=== PATIENT | male | born 1940 | race Caucasian/White ===

== ENCOUNTER 2024-03-13 20:18 | Inpatient (IN) | payer MEDICARE, OTHER, SELFPAY ==
[2024-03-13 11:53] VITALS: BP 160/82
[2024-03-13 12:12] LABS: % Basophils 0.3 % (0-2); % Immature Granulocytes 0.6 % (0-0.5); % Lymphocytes 5.8 % (20.5-51.1); % Monocytes 6.8 % (1.7-9.3); % Neutrophils 86.5 % (42.2-75.2); Absolute Basophils 0.1 10^3/uL (0-0.2); Absolute Immature Granulocytes 0.1 10^3/uL (0-0.05); Absolute Lymphocytes 1.4 10^3/uL (1.2-3.4); Absolute Monocytes 1.6 10^3/uL (0.1-0.6); Absolute Neutrophils 20.7 10^3/uL (1.4-6.5); Hematocrit 41.7 % (39.0-52.0); Mean Corp Hgb Conc. 33.6 g/dL (33.0-37.0); Mean Corpuscular Hgb 29.1 pg (27.0-31.0); Mean Corpuscular Volume 86.7 fL (80.0-94.0); Nucleated Red Blood Cells % 0 % (-); Platelet Count 168 10^3/uL (130-400); Red Blood Cell Count 4.81 10^6/uL (4.70-6.10); Red Cell Dist. Width 14.2 % (11.5-14.5)
[2024-03-13 12:30] LABS: ALT (SGPT) 19 U/L (0-50); AST (SGOT) 22 U/L (17-59); Albumin 3.9 g/dl (3.5-5.0); Alkaline Phosphatase 83 U/L (38-126); Blood Urea Nitrogen 22 mg/dl (9-20); Calcium 8.6 mg/dl (8.4-10.2); Carbon Dioxide 26 mmol/L (22-30); Chloride 99 mmol/L (98-107); Glucose 127 mg/dl (70-99); Potassium 3.6 mmol/L (3.5-5.1); Sodium 132 mmol/L (135-145); Total Bilirubin 1.4 mg/dl (0.2-1.3); eGFR > 60.00
[2024-03-13 13:00] LABS: Urine Albumin 1+ (Neg - Trace); Urine Bilirubin Negative (Negative); Urine Character Slightly Cloudy (Clear); Urine Color Yellow; Urine Glucose Negative (Negative); Urine Ketone 3+ (Negative); Urine Leukocyte 1+ (Negative); Urine Nitrite Positive (Negative); Urine Occult Blood 2+ (Negative); Urine Specific Gravity 1.025 (<1.030); Urine Urobilinogen Negative (Neg - 1+)
[2024-03-13 13:29] LABS: Urine Bacteria Many (Negative); Urine Red Blood Cell 0-2 /HPF (0-2); Urine White Cell 40-50 /HPF (0-5)
--- NOTE | 2024-03-13 15:34 | ED.GENMED ---
History of Present Illness
General
Chief Complaint: Urinary Symptoms
Source: patient
Exam Limitations: none
Time Seen by Provider: 03/13/24 15:26
Travel History
Have you had any contact with someone who has COVID-19?: No
Do you have any symptoms of coronavirus? Fever > 100 degrees, chills, cough, shortness of breath, sore throat, loss of taste or smell, muscle aches, or headache?: No
History of Present Illness
History of Present Illness:
83-year-old male started 2 days ago with UTI symptoms burning frequency. 104 temperature yesterday. No antipyretics today. Generally achy. Some bilateral back pain. No history of UTI.
Past History
Past History
ED Past Medical History: CAD, Hypercholesterolemia, NIDDM and Other (Diabetes, GI bleed, diverticulosis)
ED Past Surgical History: Other (Cardiac stents, cataracts)
Social History
Tobacco: Non-smoker
Alcohol: None
Drug: None
Personal:
Living: with family
Employment: Retired
Family History
Family History: Other (Noncontributory)
Review of Systems
Review of Systems
All Other Systems: Not applicable
Constitutional: Reports fever; Denies chills
Respiratory: Reports no symptoms
ABD/GI: Reports no symptoms
Phy Exam
Physical Exam
Physical Exam:
GENERAL: Alert and oriented in no apparent distress
EYE: Orbits normal.
NECK: Supple, no significant adenopathy.
ENT: Pharynx without erythema
CARDIAC: Regular rate and rhythm without any obvious murmurs.
LUNGS: Clear breath sounds,normal
ABDOMEN: Soft, without focal tenderness or distention. No CVA tenderness
NEUROLOGICAL: Alert and oriented , grossly non-focal
SKIN: Warm and dry, no rash or lesion, no discoloration, skin intact.
MUSCULOSKELETAL: No edema,no deformity.Good color
PSYCH: Normal and appropriate interaction.
Course
Orders/Labs/Results
Orders:
Orders
03/13/24 11:59
Complete Blood Count/With Diff Urgent
Comprehensive Metabolic Panel Urgent
Urinalysis Reflex To Culture Urgent
Date Specimen was Collected: 03/13/24
Time Specimen was Collected: 11:55
Urine Microscopic Reflex Cult Urgent
Urine Culture Urgent
ОЛЬГА Source: U
Specimen Description:
Obtained by: Random
Date Specimen was Collected: 03/13/24
Time Specimen was Collected: 11:55
03/13/24 Dinner
Cholesterol Lowering
Cholesterol Lowering: Sodium, 2 Gram
1800 niharika/15 CHO Diabetic
03/13/24 15:32
IV Insert/Care/Rem.- Treatment PRN
0.9% Sodium Chloride 1000 ml [Nss] 1,000 ml IV BOLUS
Cefepime HCl [Maxipime] 2,000 mg IV NOW STA
03/13/24 15:34
CT Abd/pel Without Iv Or Oral Urgent
Comment:
Reason For Exam: Bilateral back pain/UTI
03/13/24 15:53
Blood Culture Q30M
ОЛЬГА Source: Blood/Venous
Specimen Description:
03/13/24 16:02
Lactic Acid Q4H
Comment: CANCEL 2nd LACTIC ACID IF 1st LACTIC ACID IS LESS THAN 2
Blood Culture Q30M
ОЛЬГА Source: Blood/Venous
Specimen Description:
03/13/24 18:59
Admit/Transfer Patient As Directed
Co-Sign Provider:
Level of Care: Inpatient admission
Assign to:: Telemetry
Physician / Group: tawnya escobar
Diagnosis: sepsis 2/2 to uti/ cystitis
Reason for Telemetry: Arrhythmia
Date to Stop Telemetry: 03/16/24
Time to Stop Telemetry: 11:00
Reason for Hospitalization: sepsis 2/2 to uti/ cystitis
Expected length of stay greater than two midnights?: Yes
ELOS- Estimated Length of Stay in days: 4
I certify the patient meets the requirements for IP care: Yes
Code Status As Directed
Resuscitation Status: Full Code
03/13/24 20:47
0.9% Sodium Chloride 1000 ml [Nss] 1,000 ml IV 80 mls/hr
Acetaminophen [Tylenol] 650 mg PO Q4HPRN PRN
Bisacodyl [Dulcolax] 10 mg RECTAL [id number] PRN
Dextrose 50%-Water [Dextrose 50% Syringe] 12.5 grams IV [id number] PRN
Docusate W/Senna [Senokot-S] 1 tablet PO BIDPRN PRN
Glucagon [GlucaGen] 1 mg IM PRN PRN
Polyethylene Glycol Powder [Miralax] 17 grams PO DAILYPRN PRN
03/13/24 20:47
Activity As Directed
Activity Level: As Tolerated
Bedside Glucose Monitoring As Directed
Frequency: AC&HS
Additional Instructions:: Change to q6h if pt on TPN, tube feeding or not eating
Bladder Scan As Directed
Follow Bladder Retention/Intermittent Cath Algorithm?: Yes
PRN if no void in __ hours: 6
Frequency: Per Retention Algorithm
If Bladder Scan Result >: 400
then:: Straight cath
Intake/ Output As Directed
Frequency: Per unit guidelines
Nursing to Place Non Medication Order As Directed
Physician Order: Please call the CT in .. nurse Augusto [phone] patient's medication list as they are
closed and he does not know them
Straight Cath As Directed
Frequency: Per Retention Algorithm
Additional Instructions: straight cath as needed per acute urinary retention algorithm for 24 hrs
Additional Instructions: for bladder scan greater than 400 mL
Vital Signs As Directed
Frequency: Per unit guidelines
Ot Eval And Treat Routine
Pt Eval And Treat Routine
Activity Level: As Tolerated
DX Deep Vein Thrombosis Video Routine
03/13/24 22:00
CefTRIAXone [Rocephin] 1,000 mg IV Q24H
03/14/24 06:00
Complete Blood Count/With Diff IN AM
Comprehensive Metabolic Panel IN AM
Glycohemoglobin (HgbA1c) IN AM
03/14/24 07:30
Insulin Aspart Corrective Low [Novolog Flexpen-Low Resistance] See Protocol SC AC
03/14/24 08:00
Aspirin Low Dose EC [Aspir Low (Enteric Coated)] 81 mg PO DAILY
Cyanocobalamin [Vitamin B-12] 1,000 mcg PO DAILY
03/14/24 18:00
Enoxaparin Sodium [Lovenox] 40 mg SC QPM
03/15/24 06:00
Complete Blood Count/With Diff IN AM
Comprehensive Metabolic Panel IN AM
03/16/24 06:00
Complete Blood Count/With Diff IN AM
Comprehensive Metabolic Panel IN AM
03/16/24 11:00
DC Protocol for Telemetry ONCE
Abnormal Lab Results
03/13/24
11:59
WBC 24.0 H 10^3/uL
(4.8-10.8)
Abs Immat Gran (auto) 0.1 H 10^3/uL
(0-0.05)
Absolute Neuts (auto) 20.7 H 10^3/uL
(1.4-6.5)
Absolute Monos (auto) 1.6 H 10^3/uL
(0.1-0.6)
Immature Gran % 0.6 H %
(0-0.5)
Neutrophils % 86.5 H %
(42.2-75.2)
Lymphocytes % 5.8 L %
(20.5-51.1)
Sodium 132 L mmol/L
(135-145)
BUN 22 H mg/dl
(9-20)
Glucose 127 H mg/dl
(70-99)
Total Bilirubin 1.4 H mg/dl
(0.2-1.3)
Urine Ketones 3+ A
(Negative)
Ur Occult Blood Reflex 2+ A
(Negative)
Urine Nitrite (Reflex) Positive A
(Negative)
Leukocyte Esterase Rfl 1+ A
(Negative)
Urine WBC (Reflex) 40-50 A /HPF
(0-5)
Urine Bacteria (Reflex) Many A
(Negative)
Urine Albumin (Reflex) 1+ A
(Neg - Trace)
03/13/24 11:59
03/13/24 11:59
Vital Signs
Initial and Last Documented VS:
Initial Vital Signs
Temp Pulse Resp BP Pulse Ox
99.4 F 86 16 160/82 98
03/13/24 11:53 03/13/24 11:53 03/13/24 11:53 03/13/24 11:53 03/13/24 11:53
Last Documented Vital Signs
Temp Pulse Resp BP Pulse Ox
99.4 F 85 16 160/75 95
03/13/24 11:53 03/13/24 19:31 03/13/24 11:53 03/13/24 19:31 03/13/24 19:31
MDM/Problems Addressed
Differential Diagnosis Includes:
Complicated UTI with a significant leukocytosis. Will obtain CT scan to rule out obstruction. Fluids blood cultures antibiotics. Patient has a remote penicillin issue as a teenager he developed a rash. Does not sound life-threatening or serious.
Feel a cephalosporin is appropriate.
*Radiology
Radiology exam reviewed: radiology read reviewed (neg for hydro)
*Critical Care Note
Total Time (30-74mins, 75-104mins- exclusive of procedures): Not Applicable
Data Reviewed
Review of Other/Old Records Reveals: Labs and Testing
ED Attending Note
-
Portions of this chart may have been created with voice recognition software.� Occasional wrong word or��sound alike� substitutions may have occurred due to the inherent limitations of voice recognition software.
Discharge Plan
Departure
Patient Disposition: Admit
Date of Disposition: 03/13/24
Time of Disposition: 17:53
Presentation/result/management discussed w/ accepting MD/DO: Hospitalist
Discharge Problem:
UTI/early pyelonephritis
Interventions
Interventions:
*Risk Screen - Suicide Last Done: 03/13/24 15:42
*General Assessment Last Done: 03/13/24 15:42
*Neglect/Abuse Screening Last Done: 03/13/24 15:42
ED- Fall Risk Assessment Last Done: 03/13/24 15:42
*ED COVID-19 Vaccine History Last Done: 03/13/24 11:53
ED-Male Genitourinary Assessment Last Done: 03/13/24 15:42
[2024-03-13 15:42] VITALS: BMI 27.6
[2024-03-13] MEDS: MAXIPIME 2000 MG IV (16:02)
[2024-03-13] MEDS: NSS 1000 IV ×2 (16:03→22:03)
[2024-03-13 16:26] LABS: Lactic Acid 1.8 mmol/L (0.7-2.0)
--- NOTE | 2024-03-13 18:34 | HPS.HSE ---
Addendum entered and electronically signed by Reji Mosher MD 03/13/24 19:19:
see my separate update note
Original Note:
Family Physician
<RUBINA Melvin - Last Filed: 03/13/24 19:16>
-
Family Physician: Sigrid Butterfield
Chief Complaint
<RUBINA Melvin - Last Filed: 03/13/24 19:16>
History of Present Illness
83-year-old male complaining of urinary frequency and dysuria for the past 2 days. He reports he developed 104 F temperature yesterday with some bilateral thoracic pain across his back. He reports he did not take anything for the fever but it came
down on its own. He denies headache, chest pain, palpitations, shortness of breath, cough, abdominal pain, nausea, vomiting, diarrhea.
He has PMH DM2, HTN, HLD, CAD/TX/cardiac stents times 01/2009, GI bleed diverticular 2013, diverticulosis/diverticulitis Hx, anemia, PTSD, migraines, history of agent orange exposure, history of shrapnel right leg
<Reji Mosher MD - Last Filed: 03/13/24 19:13>
-
Penicillins, latex
Medical History
<RUBINA Melvin - Last Filed: 03/13/24 19:16>
Past Medical History
Past Medical History: Reports Other
Additional Past Medical History:
DM2
HTN
HLD
CAD/TX/cardiac stents x 01/2009
GI bleed diverticular 2013
diverticulosis/diverticulitis Hx
anemia
PTSD,
migraines
history of agent orange exposure
history of shrapnel right leg
Past Surgical History: Reports Other
Additional Past Surgical History:
Cardiac stent times 01/2009
Bilateral cataract extractions
Cosmetic eyelid surgery 2009
Social History
Tobacco: Non-smoker
Alcohol: None
Drug: None
Personal: Single
Living: Alone (With his dog)
Employment: Retired
Family History
Family History: Other (Mother age 51 status post hysterectomy surgery with infection, father age 80s CHF, brother lung cancer active smoker Sister living and healthy)
Allergies / Home Medications
Allergies reflects when Allergies were last updated in [employer].
Home Medications with original date entered in [employer]
Allergy/Medication List:
Medications on admission are unable to be verified or confirmed at this time.
[facility] closed his CT nurses Augusto [phone]
The patient recalls he takes aspirin 81 mg daily and B12 supplement but does not know any other ones
He lives alone and his son Richar does not know any of his medications
An order will be placed for nursing to call and confirm medication in a.m.
<Reji Mosher MD - Last Filed: 03/13/24 19:13>
Allergies / Home Medications
Allergy/Medication List:
Allergies
Allergy/AdvReac Type Severity Reaction Status Date / Time
Penicillins Allergy Unknown Unknown Verified 03/13/24 11:55
latex Allergy Unknown Verified 03/13/24 11:55
Home Medications
amlodipine 10 mg tablet 10 mg PO DAILY 06/25/14
hydrochlorothiazide 25 mg tablet 25 mg PO DAILY 06/25/14
potassium chloride 20 mEq tablet,extended release(part/cryst) 20 meq PO BID 06/25/14
venlafaxine 37.5 mg capsule,extended release 24 hr 37.5 mg PO HS 06/25/14
Saxagliptin HCl 5 mg PO DAILY 03/16/16
Urea 20% Cream topical BID 03/16/16
aspirin 81 mg tablet,delayed release 81 mg PO DAILY 03/16/16
carvedilol 3.125 mg tablet 3.125 mg PO DAILY 03/16/16
cyanocobalamin (vitamin B-12) 1,000 mcg tablet 1,000 mcg PO DAILY 03/16/16
gabapentin 600 mg tablet 300 mg PO BID PRN peripheral neuropathy pain 03/16/16
glipizide 10 mg tablet 10 mg PO BID 03/16/16
insulin detemir U-100 100 unit/mL subcutaneous solution (Levemir U-100 Insulin) 10 units SC HS 03/16/16
ketoconazole 2 % topical cream 1 applic topical DAILY 03/16/16
omeprazole 20 mg capsule,delayed release 20 mg PO DAILY 03/16/16
simvastatin 80 mg tablet 40 mg PO DAILY 03/16/16
Review of Systems
<RUBINA Melvin - Last Filed: 03/13/24 19:16>
-
History Source: Patient
A 12 point ROS was completed and negative except as noted: Yes
Constitutional: Reports Fever; Denies Chills
EENT: Denies Sore Throat or Runny Nose
Respiratory: Denies Cough or Trouble Breathing
Cardiac: Denies Chest Pain, Diaphoresis, Palpitations or Syncope
Abdomen/GI: Denies Abdominal Pain, Nausea, Vomiting, Diarrhea, Constipated, Bloody Stools or Black Stools
: Reports Dysuria, Frequency and Dark Urine
Musculoskeletal: Denies Joint Pain or Edema
Skin: Denies Itching or Rash
Neurological: Denies Dizzy, Headache or Weakness
Endocrine: Reports No Symptoms
Hematologic/Lymphatic: Reports No Symptoms
Psych: Reports Calm
Physical Exam
<RUBINA Melvin - Last Filed: 03/13/24 19:16>
Vital Signs
Vital Signs
Temp Pulse Resp BP Pulse Ox
99.4 F 86 16 160/82 98
03/13/24 11:53 03/13/24 11:53 03/13/24 11:53 03/13/24 11:53 03/13/24 11:53
Physical Exam
General: Conversant; No Pain, Fever or Chills
HEENT: NormoCephalic, Anicteric, Moist mucous membranes, [place] Conjunctivae and No Ptosis
Respiratory: Clear; No Wheezes, Rales or Rhonchi
Cardiac: S1/S2 and Regular Rhythm; No Murmur, Rub, Gallop or Peripheral Edema
Breast: Deferred by me
GI: Soft, Non Tender, Non Distended, Normal Bowel Sounds and No Hepatosplenomegaly
Rectal: Deferred by Provider
Genito-urinary: No costovertebral tender
Musculoskeletal: No Clubbing, No Cyanosis and No Edema
Skin: Warm and Dry; No Rash
Neuro: AO x 3, No Motor Deficits, Nonfocal/grossly intact, Cranial Nerves Intact and No Sensory Deficits; No Slurred Speech, Facial Droop or Tremors
Psych: Calm
Laboratory Results
<RUBINA Melvin - Last Filed: 03/13/24 19:16>
-
03/13/24 11:59
03/13/24 11:59
Laboratory Results
Lactic Acid Cancelled 03/13/24 19:45
Total Bilirubin 1.4 mg/dl (0.2-1.3) H 03/13/24 11:59
AST 22 U/L (17-59) 03/13/24 11:59
ALT 19 U/L (0-50) 03/13/24 11:59
Alkaline Phosphatase 83 U/L (38-126) 03/13/24 11:59
Data Reviewed
<RUBINA Melvin - Last Filed: 03/13/24 19:16>
-
CT Scan: Report Reviewed by me
Lab Data: Labs Reviewed by me
Impression/Plan
<RUBINA Melvin - Last Filed: 03/13/24 19:16>
-
Impression/plan:
Admit to telemetry
#Sepsis secondary to symptomatic UTI/cystitis
WBC 24 with left shift, HR 100, 99.4, 160/82
Positive pyuria
Follow urine culture, blood cultures x 2
Hold HCTZ
-Bladder scan protocol
-IV NSS
-IV Rocephin
-Tylenol as needed fever
-Follow CBC, BMP
CT abdomen pelvis without IV or oral contrast:
1. Diffuse urinary bladder wall thickening stranding of the fat surrounding the urinary bladder stranding fat surrounding superior prostate likely UTI infection/cystitis
2. No evidence of nephrolithiasis bilaterally
3 . Direct left inguinal hernia containing fat new since 2014
4. Right inguinal hernia containing fat
5.Cholelithiasis
6.Fatty infiltration of the liver
7. Small calcifications within the pancreatic head compatible with small dystrophic calcifications
#DM2/diabetic neuropathy
Accu-Cheks with SSI, check HgbA1c
#HTN�benign
160/82
Medication not confirmed
#HLD
#CAD/TX/cardiac stents times 01/[facility]
-Continue aspirin 81 mg daily
#GI bleed diverticular 2013
Diverticulosis diverticulitis Hx
-Continue omeprazole
#Hx anemia
Hgb 14
#PTSD
#Migraines-no current headache
#History of agent orange exposure
#History of shrapnel right leg
DVT prophylaxis
Subcu Lovenox
Full code
--- NOTE | 2024-03-13 19:14 | PHANOTE ---
Addendum entered by Deangelo Reyes 03/13/24 19:24:
03/13/2024, med rec tech, at one point (around 2015) pt. had Saxagliptan 5 mg daily, Amlodipine 10 mg daily, Urea 20% cream BID, Carvedilol 3.125 mg daily, Gabapentin 300 mg BIDPRN (for peripheral neuropathy pain), Hydrochlorothiazide 25 mg daily,
Levemir U-100 Insulin 10 units HS, Ketoconazole 1 applic daily, Omeprazole 20 mg daily, Potassium Chloride 20 meq BID, Glipizide 10 mg BID, Simvastatin 40 mg daily, and Venlafaxine 37.5 mg HS on his med. rec; however, pt. states that changes have
been made since then and he doesn't know what meds. he is taking currently.
Original Note:
03/13/2024, med rec tech, pt. does not know what meds. they are taking; pt. gets his meds. filled through the [facility]; attempted to call [place] nurse Augusto Jeffery ([phone]) but was unsuccessful; [facility]; pt has no
pharmacy fill data and no [facility] records.
--- NOTE | 2024-03-13 19:15 | W.PN.UPDATE ---
Update Note
Progress Note Update
seen and examined by me independently in collaboration with the nurse practitioner Catherine.
Past medical history/social history/medication/allergies reviewed.
Lab data and imaging data reviewed.
Patient presents with acute symptoms of dysuria frequency and difficulty voiding. She is noted to be septic Based on the parameters and suspected source is genitourinary.
Has a lower tract symptoms along with CT evidence of cystitis. No prior history of UTI. Denies history of BPH. Clinically not in retention.
Admit to hospital , started on ceftriaxone, follow culture data, and bladder scan to make sure no retention.
Patient does not know his medications and unfortunately [facility]. He lives alone now. Advised to take a help of son or family member to obtain the med list. Otherwise we have to contact [facility] in the morning. As of now
he knows he takes aspirin which we will continue.
[2024-03-13 19:31] VITALS: BP 160/75
--- NOTE | 2024-03-13 20:18 | EDRN ---
Called pharmacy to verify rocephen. Told by pharmacy delivery driver that this RN needs to call admissions to place patient into a room on [facility]. Told that they cannot verify the eds until they are placed in a room in [facility].
[2024-03-13 21:16] VITALS: BP 167/76
[2024-03-13] MEDS: ROCEPHIN 1000 MG IV (22:40)
[2024-03-13] MEDS: STERILE WATER FOR INJECTION 10 ML IV (22:40)
--- NOTE | 2024-03-13 23:31 | EDRN ---
Bedside commode placed in patients room for easy access patient states he has been having diarrhea lately and it comes on all of a sudden, call jones in reach, aware to call if needs anything, no further complaints.
[2024-03-14] VITALS (8 sets, daily range): BP systolic 91–175; BP diastolic 48–82; PULSE 74; O2SAT 95; BMI 27.5; BMI 27.9
--- NOTE | 2024-03-14 02:55 | EDRN ---
Patient has been resting comfortably with no complaints and call jones at bedside.
--- NOTE | 2024-03-14 04:31 | EDRN ---
Patient up to bedside commode, had loose stool, gown and bed soiled some, changed linen and gown, cleaned out commode for patient, patient back in bed resting comfortably, provided with new warm blankets and sent off morning labs. Call jones in reach
will continue to monitor
[2024-03-14 04:36] LABS: % Basophils 0.4 % (0-2); % Eosinophils 0.3 % (0-6); % Immature Granulocytes 0.6 % (0-0.5); % Lymphocytes 7.9 % (20.5-51.1); % Monocytes 7.8 % (1.7-9.3); Absolute Basophils 0.1 10^3/uL (0-0.2); Absolute Eosinophils 0.1 10^3/uL (0-0.7); Absolute Immature Granulocytes 0.1 10^3/uL (0-0.05); Absolute Lymphocytes 1.5 10^3/uL (1.2-3.4); Absolute Monocytes 1.5 10^3/uL (0.1-0.6); Absolute Neutrophils 15.5 10^3/uL (1.4-6.5); Hematocrit 37.8 % (39.0-52.0); Hemoglobin 12.9 g/dL (13.0-18.0); Mean Corp Hgb Conc. 34.1 g/dL (33.0-37.0); Mean Corpuscular Hgb 28.7 pg (27.0-31.0); Mean Platelet Volume 10.1 fL (7.4-10.4); Nucleated Red Blood Cells % 0 % (-); Platelet Count 150 10^3/uL (130-400); Red Cell Dist. Width 14.1 % (11.5-14.5); White Blood Cell Count 18.6 10^3/uL (4.8-10.8)
[2024-03-14 05:25] LABS: ALT (SGPT) 19 U/L (0-50); AST (SGOT) 32 U/L (17-59); Albumin 3.4 g/dl (3.5-5.0); Alkaline Phosphatase 75 U/L (38-126); Blood Urea Nitrogen 22 mg/dl (9-20); Calcium 8.4 mg/dl (8.4-10.2); Carbon Dioxide 22 mmol/L (22-30); Chloride 105 mmol/L (98-107); Estimated Creatinine Clearance 95 ml/min; Glucose 128 mg/dl (70-99); Potassium 3.7 mmol/L (3.5-5.1); Sodium 135 mmol/L (135-145); Total Bilirubin 0.9 mg/dl (0.2-1.3); Total Protein 6.4 g/dl (6.3-8.2); eGFR > 60.00
[2024-03-14] MEDS: ASPIR LOW (ENTERIC COATED) 81 MG PO (08:35)
[2024-03-14] MEDS: VITAMIN B-12 1000 MCG PO (08:35)
[2024-03-14 08:39] LABS: Glucose - Point of Care 133 mg/dl (70-99)
[2024-03-14] MEDS: NOVOLOG FLEXPEN-LOW RESISTANCE SC ×2 (08:39→12:24)
--- NOTE | 2024-03-14 11:10 | W.PN.HOSP.TC ---
Today's Communication/Plan
-
see outlined plan
Assessment / Plan
Assessment / Plan
Assessment:
Sepsis POA (tachypnea, leukocytosis, UTI/Cystitis)
E. coli bacteremia
- CT: Diffuse urinary bladder wall thickening stranding of the fat surrounding the urinary bladder stranding fat surrounding superior prostate likely UTI infection/cystitis
- s/p sepsis protocol IVF
- continue Rocephin, day 1
- follow cultures
- bladder scans/SC protocol
Loose stools
- stool studies ordered
Hyponatremia
- improved with IVF
Essential HTN
- hold HCTZ
- continue Nifedipine
DM2/diabetic neuropathy
- A1c is 7.0%
- Resume Lantus - home dose is 45 units, resume as 15 units here
- resume Aspart - home dose is 15 units with meals; resume here as 5 units
- continue SSI
CAD/[place]/cardiac stents times 01/2009 [facility]
HLD
- Continue aspirin/Statin
GI bleed diverticular 2013
Diverticulosis diverticulitis Hx
- continue omeprazole
Hx anemia
- Hgb 14
PTSD
Migraines
- no current headache
History of agent orange exposure
History of shrapnel right leg
DVT prophylaxis: Lovenox
Code: Full
Anticipated Discharge: > 48 hours
Subjective/Interval History
-
Date of Service: March 14, 2024
some mild loose stools reported by RN.
Patient denies any other complaints
Objective Data
-
Labs:
Laboratory Results
03/14/24
04:19
WBC 18.6 H
Hgb 12.9 L
Hct 37.8 L
Plt Count 150
Sodium 135
Potassium 3.7
Chloride 105
Carbon Dioxide 22
BUN 22 H
Creatinine 0.6 L
Glucose 128 H
Calcium 8.4
Total Bilirubin 0.9
AST 32
ALT 19
Alkaline Phosphatase 75
Vital Signs:
Vital Signs
Temp Pulse Resp BP Pulse Ox
98.8 F 70 15 167/69 96
03/14/24 08:26 03/14/24 08:26 03/14/24 08:26 03/14/24 08:26 03/14/24 08:26
Physical Exam
-
General: No Apparent Distress
HEENT: Normocephalic and Atraumatic
Respiratory: Negative Wheezes
Cardiac: Regular Rhythm and S1/S2
GI: Soft and Nontender
Musculoskeletal: No Edema
Neuro: AO x 3
Hematologic / Lymphatic: No Lymphadenopathy
Psych: Calm
Data Reviewed
-
Total Time Spent with Patient (in minutes): 42
Labs: Labs Reviewed by me
[2024-03-14] MEDS: PROCARDIA XL (EXTENDED RELEASE) 180 MG PO (12:21)
[2024-03-14 12:24] LABS: Glucose - Point of Care 132 mg/dl (70-99)
[2024-03-14] MEDS: LANTUS 0.149999999999999994 UNITS SC (12:24)
[2024-03-14] MEDS: PROTONIX 40 MG PO (12:25)
[2024-03-14] MEDS: NOVOLOG FLEXPEN 5 UNITS SC ×2 (12:25→17:59)
[2024-03-14] MEDS: NSS IV (12:31)
--- NOTE | 2024-03-14 15:20 | PTCARENOTE ---
Received pt from ED to room 2136, pt weighed on standing scale, oriented to room and call jones, IV fluids running, VSS, pt resting comfortably in bed at this time.
[2024-03-14 17:05] LABS: Glucose - Point of Care 187 mg/dl (70-99)
[2024-03-14] MEDS: LIPITOR 40 MG PO (17:58)
[2024-03-14] MEDS: NOVOLOG FLEXPEN-LOW RESISTANCE 1 UNITS SC (17:59)
[2024-03-14] MEDS: LOVENOX 40 MG SC (18:01)
[2024-03-14] MEDS: TYLENOL 650 MG PO (20:53)
[2024-03-14 21:44] LABS: Glucose - Point of Care 180 mg/dl (70-99)
[2024-03-14] MEDS: ROCEPHIN 1000 MG IV (22:04)
[2024-03-14] MEDS: STERILE WATER FOR INJECTION 10 ML IV (22:04)
[2024-03-15] VITALS (7 sets, daily range): BP systolic 123–150; BP diastolic 58–80
[2024-03-15] MEDS: TYLENOL 650 MG PO (04:04)
[2024-03-15 06:48] LABS: % Basophils 0.3 % (0-2); % Eosinophils 0.3 % (0-6); % Immature Granulocytes 0.7 % (0-0.5); % Lymphocytes 7.4 % (20.5-51.1); % Monocytes 9.4 % (1.7-9.3); % Neutrophils 81.9 % (42.2-75.2); Absolute Immature Granulocytes 0.1 10^3/uL (0-0.05); Absolute Lymphocytes 0.6 10^3/uL (1.2-3.4); Absolute Monocytes 0.8 10^3/uL (0.1-0.6); Absolute Neutrophils 7.1 10^3/uL (1.4-6.5); Hematocrit 34.9 % (39.0-52.0); Hemoglobin 12.1 g/dL (13.0-18.0); Mean Corp Hgb Conc. 34.7 g/dL (33.0-37.0); Mean Corpuscular Hgb 28.7 pg (27.0-31.0); Mean Corpuscular Volume 82.7 fL (80.0-94.0); Mean Platelet Volume 10.9 fL (7.4-10.4); Nucleated Red Blood Cells % 0 % (-); Platelet Count 160 10^3/uL (130-400); Red Blood Cell Count 4.22 10^6/uL (4.70-6.10); Red Cell Dist. Width 13.8 % (11.5-14.5); White Blood Cell Count 8.7 10^3/uL (4.8-10.8)
[2024-03-15 07:12] LABS: ALT (SGPT) 40 U/L (0-50); AST (SGOT) 49 U/L (17-59); Albumin 3.2 g/dl (3.5-5.0); Alkaline Phosphatase 77 U/L (38-126); Blood Urea Nitrogen 21 mg/dl (9-20); Calcium 8.4 mg/dl (8.4-10.2); Carbon Dioxide 19 mmol/L (22-30); Chloride 105 mmol/L (98-107); Estimated Creatinine Clearance 80 ml/min; Glucose 168 mg/dl (70-99); Sodium 132 mmol/L (135-145); Total Bilirubin 0.7 mg/dl (0.2-1.3); Total Protein 6.1 g/dl (6.3-8.2); eGFR > 60.00
[2024-03-15 08:01] LABS: Glucose - Point of Care 157 mg/dl (70-99)
[2024-03-15] MEDS: KCL 270 MEQ IV (09:22)
[2024-03-15] MEDS: KCL 40 MEQ PO (09:22)
[2024-03-15] MEDS: PROCARDIA XL (EXTENDED RELEASE) 180 MG PO (09:23)
[2024-03-15] MEDS: VITAMIN B-12 1000 MCG PO (09:24)
[2024-03-15] MEDS: PROTONIX 40 MG PO (09:24)
[2024-03-15] MEDS: ASPIR LOW (ENTERIC COATED) 81 MG PO (09:24)
[2024-03-15] MEDS: NOVOLOG FLEXPEN-LOW RESISTANCE 1 UNITS SC (09:28)
[2024-03-15] MEDS: NOVOLOG FLEXPEN SC ×2 (09:45→13:13)
[2024-03-15] MEDS: LANTUS SC ×2 (09:45→09:49)
[2024-03-15] MEDS: LANTUS 0.149999999999999994 UNITS SC (09:49)
[2024-03-15] MEDS: NOVOLOG FLEXPEN 5 UNITS SC (09:50)
--- NOTE | 2024-03-15 10:35 | W.PN.HOSP.TC ---
Today's Communication/Plan
-
K+ repletion
repeat blood cultures
IV abx
Assessment / Plan
Assessment / Plan
Assessment:
Sepsis POA (tachypnea, leukocytosis, UTI/Cystitis)
E. coli bacteremia
- CT: Diffuse urinary bladder wall thickening stranding of the fat surrounding the urinary bladder stranding fat surrounding superior prostate likely UTI infection/cystitis
- s/p sepsis protocol IVF
- continue Rocephin, day 2
- repeat cultures ordered
- bladder scans/SC protocol
Loose stools
- stool studies pending but C. Diff negative
Hyponatremia
- improved with IVF
Essential HTN
- hold HCTZ
- continue Nifedipine
DM2/diabetic neuropathy
- A1c is 7.0%
- Resume Lantus - home dose is 45 units, resume as 20 units here
- resume Aspart - home dose is 15 units with meals; resume here as 5 units
- continue SSI
Hypokalemia
- replete IV and oral; later tonight resume [employer] ANALY[employer] 30 meq BID
CAD/[place]/cardiac stents times 01/2009 [facility]
HLD
- Continue aspirin/Statin
GI bleed diverticular 2013
Diverticulosis diverticulitis Hx
- continue omeprazole
Hx anemia
- Hgb 14
PTSD
Migraines
- no current headache
History of agent orange exposure
History of shrapnel right leg
DVT prophylaxis: Lovenox
Code: Full
Anticipated Discharge: > 48 hours
Subjective/Interval History
-
Date of Service: March 15, 2024
denies any new complaints at present, just tired
loose stools improving to semi-formed state
Objective Data
-
Labs:
Laboratory Results
03/15/24
06:18
WBC 8.7
Hgb 12.1 L
Hct 34.9 L
Plt Count 160
Sodium 132 L
Potassium 3.0 L
Chloride 105
Carbon Dioxide 19 L
BUN 21 H
Creatinine 0.7
Glucose 168 H
Calcium 8.4
Total Bilirubin 0.7
AST 49
ALT 40
Alkaline Phosphatase 77
Vital Signs:
Vital Signs
Temp Pulse Resp BP Pulse Ox
98.5 F 72 20 124/60 96
03/15/24 08:00 03/15/24 09:23 03/15/24 08:00 03/15/24 09:23 03/15/24 10:16
I&O
03/14/24 03/15/24 03/16/24
06:59 06:59 06:59
Intake Total 240 / 240
Output Total 100 / 100
Balance 140 / 140
Physical Exam
-
General: No Apparent Distress
HEENT: Normocephalic and Atraumatic
Respiratory: Negative Wheezes or Rales
Cardiac: Regular Rhythm and S1/S2
GI: Soft
Genito-urinary: No Costovertebral Tender
Musculoskeletal: No Edema
Neuro: AO x 3
Psych: Calm
Data Reviewed
-
Total Time Spent with Patient (in minutes): 41
Labs: Labs Reviewed by me
--- NOTE | 2024-03-15 11:24 | CM ---
Reviewed the chart notes and spoke with the patient at the bedside. Per patient, [facility] is the primary insurance and Medicare is secondary. Call placed to Admission, spoke with Irma, updated on the above. She will look into it.
The patient resides alone in a two story home with one step to enter. The patient's spouse passed in 10/2022. The patient reports no DME/VN/SNF. The patient confirmed his pharmacy for short term medications is the [facility] [address].
[facility]. CM continues to be available to patient/family and is monitoring medical plan for needs at discharge.
Plan: Discharge to home when medically stable.
[2024-03-15 12:10] LABS: Glucose - Point of Care 192 mg/dl (70-99)
--- NOTE | 2024-03-15 12:50 | PTCARENOTE ---
Addendum entered by Princess Louis RN 03/15/24 14:14:
Troponin result 0.109, critical result communicated to MD. Patient states improvement in breathing sitting on side of bed, transported to obstruction series and CT scan on 4L NC.
Original Note:
Patient's vitals at 1215 taken by tech stable, patient stated no concerns to tech at that time. This RN went in to assess patient at 1245, patient laying on side holding chest, dyspneic at rest, stated to this RN 'I don't know what's wrong, but I
don't feel good.' IV KCl infusion stopped d/t patient saying he cannot tolerate - received approximately half of infusion. Vitals taken by this RN, BP 139/80 RUE, oral temp 98.8F, HR high 90s-low 100s on monitor, 89% on RA. Patient placed on 2L NC,
POX continuing to sit at 89%, increased to 4L and sat up in bed with improvement to 95%. EKG obtained, results sent to MD. Patient complaining of 'bloated' feeling in abdomen, bladder scan obtained, 139 ml after voiding 50 ml into urinal. MD at
bedside, obstruction series and CT scan ordered, troponin lab draw ordered.
[2024-03-15] MEDS: NOVOLOG FLEXPEN-LOW RESISTANCE SC (13:13)
[2024-03-15 13:49] LABS: Troponin I 0.109 ng/ml
--- NOTE | 2024-03-15 15:08 | CON.CAR ---
Addendum entered and electronically signed by Monty Beck MD 03/15/24 21:52:
I saw and examined the patient.
The RAIL OPERATIONS CONTROLLER or PA's note was reviewed and I agree with the note.
Comment: General: Well developed, well nourished in NAD.
Neck: Supple, no JVD, HJR, carotids +2 B/L, no bruits bilaterally.
Heart: Non displaced PMI, RRR, no murmurs, No S3, S4, no rubs.
Lungs: Scattered rhonchi
Extremities: No clubbing, cyanosis or edema bilaterally.
Neuro: Grossly nonfocal, awake, alert and oriented x3.
Huy has a history of CAD status post stenting in 2008 followed by cardiology at the [facility], diabetes, hypertension, hyperlipidemia, reflux. He was admitted with urinary tract infection and Escherichia coli bacteremia. He's been
treated with antibiotics. He developed chest discomfort and shortness of breath.he continued chest discomfort and shortness of breath. ECG with lateral ST-T wave changes. Troponin has reached 2.2. Stat chest CT revealed evidence of CHF. Preliminary
echocardiogram with ejection fraction of 45%.
We'll treat with IV heparin and will add beta gregg. We'll continue to track troponins. Consider ischemic evaluation with catheterization based on his course. Also we'll treat for CHF with IV Lasix. we'll obtain records from [place]. Check lipids
Original Note:
Consultation
Consultation Request
Date/Time Consultation Performed: 03/15/24
Requesting Provider: Dr. Vergara
Performing Provider: Alanna Paez PA-C for Dr. Beck
Reason for Consultation: CP, SOB
Medical History
-
Chief Complaint: fever, urinary symptoms
History of Present Illness:
Patient is an 83-year-old male with past medical history of CAD status post stenting in 2006 at [facility], followed by cardiology at the [facility], diabetes, hypertension, hyperlipidemia, GERD who presented to [facility] for evaluations of
urinary burning and frequency with associated fever. He is being treated for UTI and E. coli bacteremia with antibiotics. He received 2 Liters of fluid since admission. Today noted to complain of some chest discomfort particularly with deep
breathing and coughing, as well as labored respirations and shortness of breath. Troponin resulted at 0.1. Underwent chest CTA negative for PE. Noted to have trace bilateral pleural effusions as well as additional findings consistent with acute
CHF. Reports orthopnea. Patient states he has been on a water pill for some time, although I do not see that on his current med list. EKG with possible lateral T wave inversion, new compared to prior from 2016. Cardiology consulted for evaluation
PMH:
CAD status post stenting in 2006 at [facility]
Diabetes
Hypertension
Hyperlipidemia
GERD
History of anemia/GI bleed
History of agent orange exposure
History of shrapnel right leg
Past Medical History
Past Medical History: Other (in HPI)
Social History
Tobacco: Non-Smoker
Alcohol: None
Living: Alone
Employment: Retired
Allergies / Home Medications
Allergy/AdvReac Type Severity Reaction Status Date / Time
latex Allergy Unknown Verified 03/13/24 11:55
Penicillins Allergy Unknown Verified 03/13/24 20:16
�Medication �Instructions �Recorded �Confirmed �Type
aspirin 81 mg tablet,delayed 81 mg PO DAILY Blood Clot 03/13/24 03/14/24 History
release Prevention/Tx
cyanocobalamin (vitamin B-12) 1,000 mcg PO DAILY Supplement 03/13/24 03/14/24 History
1,000 mcg tablet
insulin aspart U-100 100 unit/mL 15 unit SC DAILY diabetes 03/14/24 03/14/24 History
(3 mL) subcutaneous pen (Novolog
FlexPen U-100 Insulin aspart)
insulin aspart U-100 100 unit/mL 16 unit SC QPM diabetes 03/14/24 03/14/24 History
(3 mL) subcutaneous pen (Novolog
FlexPen U-100 Insulin aspart)
insulin aspart U-100 100 unit/mL 4 unit SC DAILYPRN PRN with a snack 03/14/24 03/14/24 History
subcutaneous solution
insulin glargine 100 unit/mL 45 unit SC DAILY diabetes 03/14/24 03/14/24 History
subcutaneous solution (Lantus
U-100 Insulin)
nifedipine 90 mg tablet,extended 180 mg PO DAILY Blood Pressure 03/14/24 03/14/24 History
release
omeprazole 20 mg tablet,delayed 20 mg PO DAILY Gastrointestinal 03/14/24 03/14/24 History
release Issue
potassium chloride 10 mEq 30 meq PO BID Electrolyte Repletion 03/14/24 03/14/24 History
tablet,extended release
simvastatin 80 mg tablet 80 mg PO QPM High Cholesterol 03/14/24 03/14/24 History
Review of Systems
-
History Source: Patient
All other systems: Negative unless noted
Physical Exam
Vital Signs
Temp Pulse Resp BP Pulse Ox
98.8 F 101 20 139/80 95
03/15/24 12:45 03/15/24 12:45 03/15/24 12:45 03/15/24 12:45 03/15/24 13:32
Lab Results
03/15/24 06:18
03/15/24 06:18
Troponin I 0.109 ng/ml H* 03/15/24 13:07
Physical Exam
General: Other (labored breathing, tachypnea. on supp O2)
HEENT: Normocephalic, Anicteric and Moist Mucous Membranes
Respiratory: Crackles
Cardiac: S1/S2, Regular Rhythm and Other (tachy)
GI: Soft, Non Tender, Normal Bowel Sounds and Distended (mild)
Musculoskeletal: No Clubbing, No Cyanosis and Edema (1+ of B/L LE)
Skin: Warm and Dry
Neuro: AO x 3
Impression / Plan
-
Primary Coat Hanger Shaper Machine Operator: ANASTASIYA Porter
Assessment:
Presentation with urinary burning frequency, fever
UTI
E.coli bacteremia
Acute CHF, unknown type
Chest discomfort
Elevated troponin
Hyponatremia
Hypokalemia
CAD status post stenting x3 in 2006 at [facility]
Diabetes
Hypertension
Hyperlipidemia
GERD
History of anemia/diverticular bleed 2013
History of agent orange exposure
History of shrapnel right leg
ECHO 03/15/24: pending
Plan:
-Patient admitted for UTI and E. coli bacteremia. Received some IV fluid in the setting of this as well as IV antibiotics.
-This afternoon developed chest pressure and shortness of breath.
-Cardiology asked to see patient urgently
-Breathing remains labored on supplemental oxygen
-Chest CTA negative for PE. Does show evidence of acute CHF
-proBNP ordered and resulted at 1780
-IV Lasix 40 mg x 1 ordered. will plan to place on IV lasix 40mg daily pending response
-replete K. mag stable
-Troponin 0.109. Trend to peak. EKG with lateral T wave inversions compared to prior from 2016
-Chest discomfort now improved. Sublingual nitro x1 ordered to be given as needed
-Will initiate IV heparin. Will give 243 mg aspirin now for total of 324 mg today, then continue 81 mg daily
-Urgent echo pending
-Pending results of echocardiogram, as well as troponin trends, would consider for cardiac catheterization this admission once optimized from CHF and UTI standpoint
-Will attempt to start low-dose beta-gregg. On nifedipine as an outpatient.
-Check CVE in a.m. continue outpatient Lipitor
-hemoglobin A1c 7%
-Will attempt to obtain records from [place]
-Discussed with nursing
-Discussed with hospitalist
Data Reviewed
-
EKG: Tracing Personally Visualized and interpreted
CT Scan: Report Reviewed by me
Medical Tests (Nuc Med, Echo etc): Report Reviewed by me
Labs: Labs Reviewed by me
Old Records: Reviewed
--- NOTE | 2024-03-15 15:22 | W.PN.UPDATE ---
Update Note
Progress Note Update
called this afternoon to evaluate pt with acute left sided chest pain, SOB, hypoxia to [address]-PE study negative
stat trop .109; BNP pending
EKG with PAC/PVCs and TWI
Cards consulted urgently
start BB, nitro
1 dose IV Lasix
stat Echo
[2024-03-15 16:01] LABS: Magnesium 2.1 mg/dl (1.6-2.3)
[2024-03-15 16:11] LABS: NT-proBNP 1780 pg/ml
[2024-03-15] MEDS: LASIX 40 MG IV (16:12)
[2024-03-15 16:45] LABS: APTT 37.7 Sec (23.4-35.0)
[2024-03-15] MEDS: LOW STRENGTH ASPIRIN 243 MG PO (17:01)
[2024-03-15 17:02] LABS: Glucose - Point of Care 229 mg/dl (70-99)
[2024-03-15] MEDS: LIPITOR 40 MG PO (17:02)
[2024-03-15] MEDS: TOPROL XL 25 MG PO (17:02)
[2024-03-15] MEDS: HEPARIN 25000 UNITS/250 ML IV (17:03)
[2024-03-15] MEDS: NOVOLOG FLEXPEN 8 UNITS SC (17:09)
[2024-03-15] MEDS: NOVOLOG FLEXPEN-LOW RESISTANCE 2 UNITS SC (17:10)
--- NOTE | 2024-03-15 18:30 | PTCARENOTE ---
Upon assessment of patient s/p one time dose of IV lasix per cardio, patient states chest tightness and SOB from earlier in shift has improved. Patient continuing to wear 4L NC, SaO2 94-95%; patient states SOB and chest tightness improves when
sitting up compared to laying down in bed. Cardiology made aware, patient NPO at midnight for tentative intervention in AM, PRN sublingual nitro ordered for chest pain. IV heparin infusing at initial rate of 10 ml/hr in L AC.
--- NOTE | 2024-03-15 20:49 | PTCARENOTE ---
Critical trop of 2.270, pt asymptomatic, BP 137/69, 105, communicated results to global expansion sales director EQUIPMENT OPERATOR/LABORER/SUPERVISOR, no new orders
[2024-03-15] MEDS: KCL 30 MEQ PO (20:53)
[2024-03-15] MEDS: ROCEPHIN 1000 MG IV (21:03)
[2024-03-15] MEDS: STERILE WATER FOR INJECTION 10 ML IV (21:04)
[2024-03-15 21:38] LABS: Glucose - Point of Care 142 mg/dl (70-99)
[2024-03-15 23:36] LABS: APTT 51.6 Sec (23.4-35.0)
[2024-03-16] VITALS (7 sets, daily range): BP systolic 104–159; BP diastolic 60–119; BMI 28.2
[2024-03-16] MEDS: TYLENOL 650 MG PO (02:02)
--- NOTE | 2024-03-16 02:06 | W.PN.UPDATE ---
Update Note
Progress Note Update
Patient is a-fib with hr 120s-140s. Denied SOB/Chest pain. BP 159/119, temp 99.9, R 22.
EKG ordered, CBC, BMP, and mag.
One time Lopressor 5 mg ordered, Patient currently on heparin drip and followed by the boiler/chiller technician.
[2024-03-16] MEDS: LOPRESSOR 5 MG IV (02:08)
[2024-03-16 02:20] LABS: % Basophils 0.5 % (0-2); % Eosinophils 0.6 % (0-6); % Immature Granulocytes 0.5 % (0-0.5); % Lymphocytes 11.1 % (20.5-51.1); % Monocytes 12.3 % (1.7-9.3); Absolute Basophils 0.1 10^3/uL (0-0.2); Absolute Eosinophils 0.1 10^3/uL (0-0.7); Absolute Immature Granulocytes 0.1 10^3/uL (0-0.05); Absolute Lymphocytes 1.1 10^3/uL (1.2-3.4); Absolute Monocytes 1.2 10^3/uL (0.1-0.6); Absolute Neutrophils 7.4 10^3/uL (1.4-6.5); Hemoglobin 12.9 g/dL (13.0-18.0); Mean Corp Hgb Conc. 35.8 g/dL (33.0-37.0); Mean Corpuscular Hgb 28.6 pg (27.0-31.0); Mean Corpuscular Volume 79.8 fL (80.0-94.0); Mean Platelet Volume 9.8 fL (7.4-10.4); Nucleated Red Blood Cells % 0 % (-); Platelet Count 183 10^3/uL (130-400); Red Blood Cell Count 4.51 10^6/uL (4.70-6.10); Red Cell Dist. Width 13.7 % (11.5-14.5); White Blood Cell Count 9.8 10^3/uL (4.8-10.8)
--- NOTE | 2024-03-16 02:33 | PTCARENOTE ---
Critical trop of 2.270, pt asymptomatic, BP 137/69, 105, communicated results to network contractor EMT I/85, no new orders.
--- NOTE | 2024-03-16 02:36 | PTCARENOTE ---
Pt in and out of Afib rhythm on the monitor from 0- 29, then maintained AFib with HR fluctuating between 100-140's with frequent spikes to high 120's with activity. VS 159/119, 110, T99-9, Pox 91% 4L. EKG obtained - AFib w/ RVR w/ PVC's. Pt
remains asymptomatic. MORTGAGE LOAN PROCESSING CLERK made aware again, new order to administer 5mg IV lopressor, labs were ordered. Hep IV infusing, currently at 12ml/hr.
[2024-03-16 03:11] LABS: Blood Urea Nitrogen 16 mg/dl (9-20); Calcium 8.2 mg/dl (8.4-10.2); Carbon Dioxide 21 mmol/L (22-30); Chloride 103 mmol/L (98-107); Estimated Creatinine Clearance 93 ml/min; Glucose 117 mg/dl (70-99); Magnesium 1.9 mg/dl (1.6-2.3); Potassium 3.5 mmol/L (3.5-5.1); Sodium 133 mmol/L (135-145); eGFR > 60.00
--- NOTE | 2024-03-16 03:25 | PTCARENOTE ---
3rd troponin critical at 5.330, pt denies any CP, SOB or any other discomfort. CIRCUS PERFORMER made aware.
[2024-03-16] MEDS: KCL 20 MEQ PO (04:59)
[2024-03-16 06:55] LABS: % Basophils 0.5 % (0-2); % Eosinophils 0.8 % (0-6); % Immature Granulocytes 0.5 % (0-0.5); % Lymphocytes 14.5 % (20.5-51.1); % Monocytes 13.8 % (1.7-9.3); % Neutrophils 69.9 % (42.2-75.2); Absolute Basophils 0.1 10^3/uL (0-0.2); Absolute Eosinophils 0.1 10^3/uL (0-0.7); Absolute Immature Granulocytes 0.1 10^3/uL (0-0.05); Absolute Lymphocytes 1.4 10^3/uL (1.2-3.4); Absolute Monocytes 1.3 10^3/uL (0.1-0.6); Absolute Neutrophils 6.7 10^3/uL (1.4-6.5); Hematocrit 36.3 % (39.0-52.0); Hemoglobin 12.3 g/dL (13.0-18.0); Mean Corp Hgb Conc. 33.9 g/dL (33.0-37.0); Mean Corpuscular Hgb 28.4 pg (27.0-31.0); Mean Corpuscular Volume 83.8 fL (80.0-94.0); Mean Platelet Volume 10.9 fL (7.4-10.4); Nucleated Red Blood Cells % 0 % (-); Platelet Count 170 10^3/uL (130-400); Red Blood Cell Count 4.33 10^6/uL (4.70-6.10); Red Cell Dist. Width 13.6 % (11.5-14.5); White Blood Cell Count 9.6 10^3/uL (4.8-10.8)
[2024-03-16 07:00] LABS: APTT 61.9 Sec (23.4-35.0)
[2024-03-16 07:15] LABS: Glucose - Point of Care 131 mg/dl (70-99)
[2024-03-16 07:21] LABS: ALT (SGPT) 42 U/L (0-50); AST (SGOT) 63 U/L (17-59); Albumin 3.1 g/dl (3.5-5.0); Alkaline Phosphatase 77 U/L (38-126); Blood Urea Nitrogen 14 mg/dl (9-20); Calcium 8.3 mg/dl (8.4-10.2); Carbon Dioxide 22 mmol/L (22-30); Chloride 104 mmol/L (98-107); Estimated Creatinine Clearance 93 ml/min; Glucose 125 mg/dl (70-99); HDL Cholesterol 22 mg/dl; LDL Cholesterol, Calculated 48 mg/dl; Potassium 3.3 mmol/L (3.5-5.1); Sodium 135 mmol/L (135-145); Total Bilirubin 0.7 mg/dl (0.2-1.3); Total Cholesterol 100 mg/dl (50-199); Triglyceride 152 mg/dl (10-149); Very Low Density Lipoprotein 30 mg/dl (0-30); eGFR > 60.00
[2024-03-16] MEDS: NOVOLOG FLEXPEN-LOW RESISTANCE SC ×2 (07:52→16:19)
[2024-03-16] MEDS: NOVOLOG FLEXPEN SC (07:52)
[2024-03-16] MEDS: PROTONIX 40 MG PO (07:57)
[2024-03-16] MEDS: ASPIR LOW (ENTERIC COATED) 81 MG PO (07:57)
[2024-03-16] MEDS: CARDIZEM 125 IV (07:57)
[2024-03-16] MEDS: TOPROL XL 25 MG PO (07:57)
[2024-03-16] MEDS: KCL 30 MEQ PO ×2 (08:02→21:37)
[2024-03-16] MEDS: VITAMIN B-12 1000 MCG PO (08:02)
[2024-03-16] MEDS: LANTUS SC (08:19)
[2024-03-16] MEDS: LANTUS 0.100000000000000006 UNITS SC (08:41)
--- NOTE | 2024-03-16 09:07 | W.PN.CARDCBS ---
Addendum entered and electronically signed by Brad Abdi MD 03/16/24 12:59:
Attending addendum: Patient seen and examined. PA note reviewed and findings independently confirmed by me. Briefly, this is an 83-year-old gentleman who presented with E. coli bacteremia and subsequently developed atrial fibrillation with rapid
ventricular response. Troponin levels were checked and found to be mildly elevated with reported chest discomfort when in a CT scanner yesterday. Today the patient is somewhat angry and stating he does not want to have a catheterization done at
our hospital and would favor transfer to the [place]. His son called while I was in the room seeing and examining the patient and also expressed a desire for transfer to the [place] [facility]. I explained that transfer may not be covered and that it would be
better for him to proceed with angiography here. He expressed some concern because we do not have all of his past medical records and would prefer being in a facility where most of his medical records are held.
Patient currently is chest pain-free. He denies experiencing any chest discomfort and tells me that he had several stents placed about 15 years ago at [facility] although some of our information states that it may have been at the
[facility].
GEN: AAO x 3. He is angry and states he is not sure why he came 'to this place' no acute distress
HEENT: NC/AT, sclera are anicteric,
LUNGS: Clear in the anterolateral lung richardson bilaterally. No wheezing is noted.
CV: Regular rate and rhythm. Normal S1/S2. No S3, No S4. Murmur: None
Abdomen: Soft, nontender, bowel sounds present.
EXT: No CCE
NEURO: No focal neurologic deficits
Recommendation:
-Continue IV heparin until definitive plan is made for invasive versus conservative management
-Eventually will switch to DOAC
-Continue aspirin given elevated troponin level
-Will proceed with coronary angiography as long as the patient and his son are willing to proceed and understand risk and benefits which were explained to both the patient and the son during his telephone call today. I explained the risks including
1% chance for related to his stent procedure
-Will push Toprol-XL to 50 mg p.o. twice daily
-Begin statin therapy: He came to [facility] on 80 mg of simvastatin. Will change to atorvastatin 40 mg daily
-Will discuss catheterization with patient again in the morning. If he refuses, I would push beta gregg and increase antianginal control. +/- cardioversion. If he refuses will change to DOAC.
- +/- addition of a second antianginal medication depending on if he wants to leave and [facility]up [facility].
Original Note:
Today's Communication / Plan
-
IV lasix again today. replete K
continue IV heparin, IV cardizem
possible cath in AM
continue asa, toprol, statin
eventual OAC
post cath consider for AAD, JUAN M/CV
continue abx per primary service
Impression / Plan
-
Primary Porter Luggage: ANASTASIYA Porter
Assessment:
Presentation with urinary burning frequency, fever
UTI
E.coli bacteremia
Acute HFrEF
Chest discomfort
Elevated troponin, suspected NSTEMI, peak trop 5.3
Cardiomyopathy, EF 45%
Atrial fibrillation with RVR, new diagnosis
Hyponatremia
Hypokalemia
CAD status post stenting x3 in 2006 at [place]
Diabetes
Hypertension
Hyperlipidemia
GERD
History of anemia/diverticular bleed 2013
History of agent orange exposure
History of shrapnel right leg
ECHO 03/15/24: EF 45%, global hypokinesis, trace MR, mild with peak/mean gradient 17/12 mmHg, ANDERS 1.9 cm�, mild TR, PAP 60 mmHg
Plan:
-Patient admitted for UTI and E. coli bacteremia. continue abx per primary service. awaiting repeat blood cultures
-he developed acute onset CP and SOB yesterday afternoon resulting in cardiology consultation
-trop peaked at 5.3. now trending down
-he has been CP free on IV heparin, asa
-overnight went into atrial fibrillation with RVR, new diagnosis for patient. now on IV cardizem gtt @5. asymptomatic. OP nifedipine on hold
-[id number] score of 5 for age, vascular disease, HTN, CHF. on IV heparin at present. will need eventual OAC
-proBNP 1780. breathing improved s/p IV lasix x1. remains on 4L NC, wean as able. will plan for IV lasix again today. Cr stable at 0.5. replete K
-echo with EF 45%, no prior to compare[facility]
-LDL 48. continue lipitor
-toprol 25mg daily added 03/15
-hemoglobin A1c 7%
-When I went to talk to patient today, upon reintroducing myself his response was 'and who the hell are you?' I explained that work for cardiology and discussed with him his multiple acute cardiac issues at this time. He told me he does not want
any treatment of heart issues here at this '[facility]'. He tells me he had previous billing issues related to a prior hospital stay. We discussed that this has no bearing on his clinical care, and I expressed the importance of continued
treatment. He tells me he 'wants to get out of here'. We discussed that this would not be advised, and if he were to leave he would be at increased risk for complications, including worst-case scenario, . We discussed if he were to decide to
leave this would be AGAINST MEDICAL ADVICE, and this could result in the cost of his hospital stay not being covered. Discussed with patient the plan for today would be continued diuresis to improve his respiratory status. We are awaiting repeat
blood cultures to ensure his infection is clearing as well. Would tentatively plan for L/RHC in a.m. given elevated troponin, chest pain, EF 45%. Post cath, could consider need for AAD therapy for afib as well as need for JUAN M/CV early next week.
-Discussed with nursing
-Discussed with hospitalist
Progress Note - Porter Luggage
Subjective
Date of Service: March 16, 2024
no CP, SOB. patient agitated this AM
Objective
Labs:
03/16/24 06:31
03/16/24 06:31
Labs
Hgb 12.3 g/dL (13.0-18.0) L 03/16/24 06:31
Hct 36.3 % (39.0-52.0) L 03/16/24 06:31
Plt Count 170 10^3/uL (130-400) 03/16/24 06:31
APTT 61.9 Sec (23.4-35.0) H 03/16/24 06:31
Sodium 135 mmol/L (135-145) 03/16/24 06:31
Potassium 3.3 mmol/L (3.5-5.1) L 03/16/24 06:31
BUN 14 mg/dl (9-20) 03/16/24 06:31
Creatinine 0.5 mg/dL (0.7-1.3) L 03/16/24 06:31
Glucose 125 mg/dl (70-99) H 03/16/24 06:31
Troponins
03/15/24 03/15/24 03/16/24
13:07 19:56 02:14
Troponin I 0.109 H* 2.270 H* D 5.330 H* D
03/16/24
06:31
Troponin I 4.700 H*
Vital Signs and I&O:
Vital Signs
Temp Pulse Resp BP Pulse Ox
98.5 F 134 20 108/71 93
03/16/24 07:40 03/16/24 07:57 03/16/24 07:40 03/16/24 07:57 03/16/24 07:40
Vital Signs
Temp Pulse Resp BP Pulse Ox
98.5 F 134 20 108/71 93
03/16/24 07:40 03/16/24 07:57 03/16/24 07:40 03/16/24 07:57 03/16/24 07:40
Intake & Output
03/14/24 03/15/24 03/16/24 03/17/24
07:59 07:59 07:59 07:59
Intake Total 240 / 240 1036 / 1036
Output Total 100 / 100 1675 / 1675
Balance 140 / 140 -639 / -639
Physical Exam
Physical Exam
GEN: No distress, awake, alert, oriented x3. on supp O2
HEENT: supple, anicteric, mmm, eomi
LUNGS: Crackles B/L bases, no wheezes
CV: Irreg, S1/S2, 1/6 syst LSB
ABD: soft, BS+, NT/ND
EXT: No cyanosis, clubbing. trace edema of B/L LE
NEURO: Gross non-focal
SKIN: Warm, pink, dry. No rash
--- NOTE | 2024-03-16 09:58 | W.PN.HOSP.TC ---
Today's Communication/Plan
-
IV Heparin, Cardizem drip, IV Lasix
NPO p MN for Cath tomorrow if patient agrees
TME Workup
continue IV Abx and follow cultures
Assessment / Plan
Assessment / Plan
Assessment:
TME likely in setting of acute IN, CHF, UTI/Bacteremia/Sepsis
- possible sundowning as well
- check workup and consider CT head
Sepsis POA (tachypnea, leukocytosis, UTI/Cystitis)
E. coli bacteremia
- CT: Diffuse urinary bladder wall thickening stranding of the fat surrounding the urinary bladder stranding fat surrounding superior prostate likely UTI infection/cystitis
- s/p sepsis protocol IVF
- continue Rocephin, day 3
- repeat blood cultures pending
- bladder scans/SC protocol
Acute NSTEMI
CAD/IN/cardiac stents times 01/2009 [facility]
- continue ASA/Statin/BB
- continue IV Heparin - requires intensive monitoring of PTT levels
- consider R/LHC if bacteremia clears and CHF improves
Acute CHF - systolic
- Echo: Normal LV size/thickness, reduced systolic function with EF 45%, Global hypokinesis, trace MR, mild , mild TR
- continue IV Lasix - requires intensive monitoring of lytes/weights etc
New onset Parox Rapid AFib
- continue IV Heparin - requires intensive monitoring of PTT levels. [id number] score of 5 for age, vascular disease, HTN, CHF
- continue IV Cardizem drip - requires intensive monitoring tele
- continue Toprol
- may need AAD
Acute hypoxic respiratory insufficiency related to acute CHF
- wean O2 as able with IV Lasix
Loose stools
- stool studies pending but C. Diff negative
Hyponatremia
- improved with IVF
Hypokalemia
- replete prn doses and continue standing KCL 30meq BID (FARMWORKERS dose)
Essential HTN
- hold HCTZ
- hold Nifedipine
- Toprol started
DM2/diabetic neuropathy
- A1c is 7.0%
- Resume Lantus - home dose is 45 units, resume as 20 units here (10 units if NPO)
- resume Aspart - home dose is 15 units with meals; resume here as 5 units
- continue SSI
HLD
- Continue Statin
GI bleed diverticular 2013
Diverticulosis diverticulitis Hx
- continue omeprazole
Hx anemia
- Hgb 14
PTSD
Migraines
- no current headache
History of agent orange exposure
History of shrapnel right leg
DVT prophylaxis: Lovenox
Code: Full
Anticipated Discharge: > 48 hours
Subjective/Interval History
-
Date of Service: March 16, 2024
yesterday chest pain episode later diagnosed with acute CHF, NSTEMI, rapid Afib
today more agitated, talking about not trusting [place] for ongoing care, wants to leave
Objective Data
-
Labs:
Laboratory Results
03/15/24 03/16/24 03/16/24
23:18 02:14 06:31
WBC 9.8 9.6
Hgb 12.9 L 12.3 L
Hct 36.0 L 36.3 L
Plt Count 183 170
APTT 51.6 H 61.9 H
Sodium 133 L 135
Potassium 3.5 3.3 L
Chloride 103 104
Carbon Dioxide 21 L 22
BUN 16 14
Creatinine 0.6 L 0.5 L
Glucose 117 H 125 H
Calcium 8.2 L 8.3 L
Total Bilirubin 0.7
AST 63 H
ALT 42
Alkaline Phosphatase 77
03/16/24
13:00
WBC
Hgb
Hct
Plt Count
APTT Pending
Sodium
Potassium
Chloride
Carbon Dioxide
BUN
Creatinine
Glucose
Calcium
Total Bilirubin
AST
ALT
Alkaline Phosphatase
Vital Signs:
Vital Signs
Temp Pulse Resp BP Pulse Ox
98.5 F 134 20 108/71 93
03/16/24 07:40 03/16/24 07:57 03/16/24 07:40 03/16/24 07:57 03/16/24 07:40
I&O
03/15/24 03/16/24 03/17/24
06:59 06:59 06:59
Intake Total 240 / 240 1036 / 1036
Output Total 100 / 100 1675 / 1675
Balance 140 / 140 -639 / -639
Physical Exam
-
HEENT: Normocephalic and Atraumatic
Respiratory: Rales
Cardiac: Irregular Rhythm
GI: Soft and Nontender
Musculoskeletal: No Edema
Neuro: AO x 3
Hematologic / Lymphatic: No Lymphadenopathy
Psych: Calm
Data Reviewed
-
Total Time Spent with Patient (in minutes): 51
Labs: Labs Reviewed by me
[2024-03-16] MEDS: LASIX 40 MG IV (11:13)
[2024-03-16 11:20] LABS: Glucose - Point of Care 152 mg/dl (70-99)
[2024-03-16] MEDS: HEPARIN 25000 UNITS/250 ML IV (12:21)
[2024-03-16] MEDS: NOVOLOG FLEXPEN 8 UNITS SC ×2 (12:24→16:29)
[2024-03-16] MEDS: NOVOLOG FLEXPEN-LOW RESISTANCE 1 UNITS SC (12:24)
--- NOTE | 2024-03-16 13:55 | CM ---
Patient for possible cardiac cath tomorrow, [facility]. Transfer not likely at this time per physician. CM will continue to follow for discharge planning needs.
Plan; patient my need VN supports at discharge pending medical treatment plan.
[2024-03-16 13:56] LABS: APTT 71.1 Sec (23.4-35.0); Ammonia 12 umol/L (9-30)
[2024-03-16 14:38] LABS: TSH Reflex To Free T4 4.32 uIU/ml (0.47-4.68)
[2024-03-16 15:13] LABS: Folate 14.6 ng/ml (2.76-20); Vitamin B12 915 pg/ml (239-931)
[2024-03-16 16:17] LABS: Glucose - Point of Care 106 mg/dl (70-99)
[2024-03-16] MEDS: LIPITOR 40 MG PO (17:07)
[2024-03-16 20:41] LABS: APTT 86.1 Sec (23.4-35.0)
[2024-03-16] MEDS: TOPROL XL 50 MG PO (21:37)
[2024-03-16] MEDS: STERILE WATER FOR INJECTION 10 ML IV (21:38)
[2024-03-16 21:39] LABS: Glucose - Point of Care 168 mg/dl (70-99)
[2024-03-16] MEDS: ROCEPHIN 1000 MG IV (21:39)
[2024-03-17] VITALS (9 sets, daily range): BP systolic 118–146; BP diastolic 66–97; BMI 27.3
[2024-03-17] MEDS: HEPARIN 25000 UNITS/250 ML IV (04:34)
[2024-03-17 04:49] LABS: APTT 123.6 Sec (23.4-35.0)
[2024-03-17 05:43] LABS: Hematocrit 36.2 % (39.0-52.0); Hemoglobin 12.4 g/dL (13.0-18.0); Mean Corp Hgb Conc. 34.3 g/dL (33.0-37.0); Mean Corpuscular Hgb 28.4 pg (27.0-31.0); Mean Platelet Volume 11.3 fL (7.4-10.4); Platelet Count 200 10^3/uL (130-400); Red Blood Cell Count 4.36 10^6/uL (4.70-6.10); Red Cell Dist. Width 13.9 % (11.5-14.5); White Blood Cell Count 8.8 10^3/uL (4.8-10.8)
[2024-03-17 05:54] LABS: Glucose - Point of Care 120 mg/dl (70-99)
[2024-03-17 06:07] LABS: Blood Urea Nitrogen 14 mg/dl (9-20); Calcium 8.4 mg/dl (8.4-10.2); Carbon Dioxide 23 mmol/L (22-30); Chloride 105 mmol/L (98-107); Estimated Creatinine Clearance 93 ml/min; Glucose 109 mg/dl (70-99); Magnesium 2.1 mg/dl (1.6-2.3); Potassium 3.4 mmol/L (3.5-5.1); Sodium 138 mmol/L (135-145); eGFR > 60.00
[2024-03-17] MEDS: NOVOLOG FLEXPEN SC (08:18)
[2024-03-17] MEDS: NOVOLOG FLEXPEN-LOW RESISTANCE SC ×2 (08:18→17:18)
--- NOTE | 2024-03-17 08:32 | W.PN.HOSP.TC ---
Today's Communication/Plan
-
continue IV Heparin - hold decontamination technician for cath
continue IV Cardizem
continue IV abx
continue IV Lasix
Cath today
Assessment / Plan
Assessment / Plan
Assessment:
TME likely in setting of acute TX, CHF, UTI/Bacteremia/Sepsis
- possible sundowning as well
- workup unremarkable. no focality, defer CT head
Sepsis POA (tachypnea, leukocytosis, UTI/Cystitis)
E. coli bacteremia
- CT: Diffuse urinary bladder wall thickening stranding of the fat surrounding the urinary bladder stranding fat surrounding superior prostate likely UTI infection/cystitis
- s/p sepsis protocol IVF
- continue Rocephin, day 414 - at discharge switch to Amoxicillin
- repeat blood cultures NGTD
- bladder scans/SC protocol
Acute NSTEMI
CAD/TX/cardiac stents times 01/2009 [facility]
- continue ASA/Statin/BB
- continue IV Heparin - requires intensive monitoring of PTT levels. hold decontamination technician to cath
- Cath planned today
Acute CHF - systolic
- Echo: Normal LV size/thickness, reduced systolic function with EF 45%, Global hypokinesis, trace MR, mild , mild TR
- continue IV Lasix - requires intensive monitoring of lytes/weights etc
- continue beta-gregg
New onset Parox Rapid A.Fib
- continue IV Heparin - requires intensive monitoring of PTT levels. [id number] score of 5 for age, vascular disease, HTN, CHF
- continue IV Cardizem drip - requires intensive monitoring tele
- continue Toprol
- may need AAD
Acute hypoxic respiratory insufficiency related to acute CHF
- on 4L - wean O2 as able with IV Lasix
Loose stools
- stool studies negative
Hyponatremia
- improved with IVF
Hypokalemia
- replete prn doses and continue standing KCL 30meq BID (SHOE LINING FITTER dose)
Essential HTN
- hold HCTZ
- hold Nifedipine
- Toprol started
DM2/diabetic neuropathy
- A1c is 7.0%
- Resume Lantus - home dose is 45 units, resume as 20 units here (10 units if NPO)
- resume Aspart - home dose is 15 units with meals; resume here as 5 units
- continue SSI
HLD
- Continue Statin
GI bleed diverticular 2013
Diverticulosis diverticulitis Hx
- continue omeprazole
Hx anemia
- Hgb 14
PTSD
Migraines
- no current headache
History of agent orange exposure
History of shrapnel right leg
DVT prophylaxis: IV heparin
Code: Full
Anticipated Discharge: > 48 hours
Subjective/Interval History
-
Date of Service: March 17, 2024
less SOB
no CP
Objective Data
-
Labs:
Laboratory Results
03/16/24 03/17/24 03/17/24
20:24 03:06 04:18
WBC 8.8
Hgb 12.4 L
Hct 36.2 L
Plt Count 200
APTT 86.1 H 123.6 H
Sodium 138
Potassium 3.4 L
Chloride 105
Carbon Dioxide 23
BUN 14
Creatinine 0.6 L
Glucose 109 H
Calcium 8.4
03/17/24
11:00
WBC
Hgb
Hct
Plt Count
APTT Pending
Sodium
Potassium
Chloride
Carbon Dioxide
BUN
Creatinine
Glucose
Calcium
Vital Signs:
Vital Signs
Temp Pulse Resp BP Pulse Ox
97.7 F 83 19 121/71 95
03/17/24 03:17 05/10/24 03:17 03/17/24 03:17 03/17/24 03:17 03/17/24 03:36
I&O
03/16/24 03/17/24 03/18/24
06:59 06:59 06:59
Intake Total 1036 / 1036 1680 / 1680
Output Total 1675 / 1675 2400 / 2400
Balance -639 / -639 -720 / -720
Physical Exam
-
General: No Apparent Distress
HEENT: Normocephalic and Atraumatic
Respiratory: Rales; Negative Wheezes
Cardiac: Irregular Rhythm
GI: Soft
Neuro: AO x 3
Psych: Calm
Data Reviewed
-
Total Time Spent with Patient (in minutes): 52
Labs: Labs Reviewed by me
[2024-03-17] MEDS: KCL 30 MEQ PO ×2 (09:43→19:16)
[2024-03-17] MEDS: VITAMIN B-12 1000 MCG PO (09:43)
[2024-03-17] MEDS: LASIX 40 MG IV (09:43)
[2024-03-17] MEDS: PROTONIX 40 MG PO (09:43)
[2024-03-17] MEDS: ASPIR LOW (ENTERIC COATED) 81 MG PO (09:43)
[2024-03-17] MEDS: TOPROL XL 50 MG PO ×3 (09:43→19:16)
[2024-03-17 11:11] LABS: APTT 74.2 Sec (23.4-35.0)
[2024-03-17 12:22] LABS: ACT-LR - POC 205 Seconds (116-155)
[2024-03-17 12:34] LABS: ACT-LR - POC 260 Seconds (116-155)
[2024-03-17 12:42] LABS: ACT-LR - POC 285 Seconds (116-155)
--- NOTE | 2024-03-17 12:52 | VNURNOTE ---
Home Health Liaison met with patient at bedside to discuss [facility] nurse/therapy, visits, schedule and homebound status. Patient does not feel he needs VN at this time. Contact info provided in case he changes his mind.
[2024-03-17 12:55] LABS: ACT-LR - POC 327 Seconds (116-155)
[2024-03-17 13:06] LABS: ACT-LR - POC 287 Seconds (116-155)
--- NOTE | 2024-03-17 13:42 | ITS.CL.CATH ---
[facility]na Caregiver - Catheterization
Cardiac Catheterization
Procedure Report:
LEFT HEART CATH AND CORONARY INTERVENTION
Date of Procedure: March 17, 2024
Referring: Dr. Monty Beck
PROCEDURES:
1. Left heart catheterization with coronary and single-plane left ventriculography
2. Successful stenting of the mid LAD with a 3.0 x 28 mm Xience stent that was implanted at nominal pressures and postdilated to high pressures with a 3.25 mm noncompliant balloon
INDICATION: This is an 83-year-old gentleman with a prior history of coronary artery disease and reported history of 3 stents of unknown vessels sometime between [id number]. Patient was not sure if it was performed at [facility]
or at the [facility]. In addition to his history of coronary disease, the patient is treated for diabetes, hypertension, and hyperlipidemia. Most of his healthcare is obtained through the [facility]. He was admitted
to [facility] on 03/13/2024 with E. coli bacteremia for which he was started on IV antibiotics. He experienced some chest discomfort and shortness of breath with a troponin peaking at 5.33 ng/mL. During his hospitalization he developed
atrial fibrillation with rapid ventricular response and was started on IV Cardizem.
ACCESS: Right radial artery, 6 Estonian sheath
HEMODYNAMICS (mmHg):
AO (s/d, m) : 127/78
LV (s/d) : 130/6
LVEDP : 20
CORONARY FINDINGS
Dominance: Right
LEFT MAIN: Minor distal tapering.
LEFT ANTERIOR DESCENDING: The LAD arises normally from the left main and runs in the anterior interventricular groove. There is a long stent in the proximal LAD. The mid LAD just beyond the first septal integrity engineer as 30-40% in-stent restenosis.
There are tandem 60 and 95% stenoses in the mid LAD beyond the previously stented segment. The distal LAD has a long 65% stenosis before the LAD wraps around the apex.
CIRCUMFLEX: The circumflex is a large-caliber nondominant vessel with 40% ostial and 50% mid stenosis. Diffuse luminal irregularities but no additional focal obstructive stenosis. The circumflex supplies a single dominant obtuse marginal branch
that appears free of obstructive atherosclerotic disease
RIGHT CORONARY: The right coronary artery is heavily calcified and moderately ectatic. There is a stent from the ostium through proximal RCA that is patent. Mild in-stent restenosis. There is no pressure dampening with engagement of 6 Estonian
diagnostic catheter. The mid RCA beyond an RV marginal branch has a long calcific 60-65% stenosis and the remainder of the RCA had diffuse noncritical luminal irregularities. The PDA is widely patent. The posterolateral branch has a proximal 50%
stenosis and mid calcified 80% stenosis. The distal posterolateral branch just beyond the stenosis becomes very tortuous with a 180 degree bend followed by 90 degree bend into the distal vessel.
VENTRICULOGRAPHY: Left ventriculography was performed in an FISCHER projection. The digital single-plane left ventricular ejection fraction is visually estimated at 45-50%
ANGIOPLASTY PROCEDURE DETAIL: Upon review of the diagnostic catheterization films the decision was made to proceed with percutaneous revascularization of the high-grade mid LAD stenosis. Intravenous heparin was administered. A 600 mg loading dose
of clopidogrel was given at the beginning of the interventional procedure. The ACT was monitored throughout the procedure and additional heparin was administered as required to maintain a therapeutic ACT.
The origin of the left main was cannulated with a 6 Estonian EBU 3.5 guiding catheter and a short BMW guidewire was advanced to the apical LAD. Balloon predilation was performed with a 2.25 x 15 mm trek balloon. I attempted to cross the lesion with
a 3.0 x 28 mm Xience stent. Unfortunately, the stent did not easily cross and was removed. A 2.5 x 20 mm noncompliant balloon was then advanced over the guidewire and inflated in the mid LAD at the site of high-grade stenosis. The noncompliant
balloon appeared well-expanded. A second balloon inflation was performed more proximally with good expansion of the 2.5 mm noncompliant balloon. The balloon was deflated and removed. The 3.0 x 28 mm Xience stent then easily crossed the mid LAD
stenosis where it was implanted at nominal pressures then postdilated with a 3.25 mm noncompliant balloon throughout the majority of the stented segment to 20 patricia and 14-16 patricia near the distal edge of the stent.
RADIATION SUMMARY: Fluoro Time (min): 13.6, Dose (mGy): 969, DAP (Gy.cm2) : 76
CONCLUSIONS
1. Successful stenting of the mid LAD with a 3.5 x 28 mm Xience stent that was implanted overlapping and distal to the previously placed stents. The stent was postdilated with a 3.25 mm noncompliant balloon.
2. Residual coronary disease in the mid RCA and mid-distal posterolateral branch. PCI could be considered for symptoms refractory to good medical therapy
3. Low normal to mildly reduced LVEF
4. Atrial fibrillation with rapid ventricular response
RECOMMENDATIONS
1. Aspirin, Plavix, and Eliquis x1 week followed by Plavix and Eliquis
2. Rate control in atrial fibrillation remains poor. Will give an additional 50mg x 1 of Toprol XL now then increase to 100mg bid. We have also increased Cardizem infusion rate after small bolus. Hold parameters for beta gregg are written
3. Planned JUAN M cardioversion
4. PCI and stenting of the posterolateral branch and mid RCA could be considered for anginal symptoms refractory to medical therapy.
Copy to: Dr. Monty Beck
[2024-03-17] MEDS: CARDIZEM 10 MG IV (14:05)
[2024-03-17 14:54] LABS: Glucose - Point of Care 153 mg/dl (70-99)
[2024-03-17] MEDS: NOVOLOG FLEXPEN 8 UNITS SC ×2 (15:04→18:26)
[2024-03-17] MEDS: NOVOLOG FLEXPEN-LOW RESISTANCE 1 UNITS SC (15:07)
--- NOTE | 2024-03-17 15:22 | CM ---
Chart reviewed. Patient is independent of ADLS, lives alone in a 2 STH, 1 DESTIN, 0 DME. Patient is not current with VN and is not interested. Plan is for the patient to return home. CM to follow
--- NOTE | 2024-03-17 15:24 | CM ---
Addendum entered by Merari Gomez RN 03/17/24 15:57:
I reviewed with patient and son.
Original Note:
Pricing on Eliquis. Patient is a patient of the [place], Dr Butterfield. I left a message with the RN, Augusto Sauceda, on patient being started on Eliquis. I called the pharmacist at [phone], the patient needs a prior authorization. I faxed H+P and
laborer shaft sinking report to [phone]. Once medication is approved it will cost $11. I placed a free 30 day coupon in the patient's red discharge folder.
--- NOTE | 2024-03-17 15:56 | PTCARENOTE ---
Pt received post cath at 1345. Pt alert and oriented. Right rad band intact with no bleeding or hematoma. Pt denies any chest pain or sob.
--- NOTE | 2024-03-17 17:00 | PTCARENOTE ---
Assumed care of pt from day nurse. Pt received in bed resting. VSS, CM shows AF 90-100, POX 98% on RA. Right radial site CDI with normal CMS throughout limb. Cardizem drip remains at 10 mg/hr running through left hand. Pt denies any pain or
discomfort at this time. Plan for JUAN M/CV on Wednesday.
[2024-03-17 17:07] LABS: Glucose - Point of Care 147 mg/dl (70-99)
[2024-03-17] MEDS: LIPITOR 40 MG PO (18:26)
[2024-03-17] MEDS: ELIQUIS 5 MG PO (19:16)
--- NOTE | 2024-03-17 21:58 | PTCARENOTE ---
Assumed care of patient at change of shift. Tele monitor shows Afib w/ occasional PVCs. HR in the 80-110's at rest. IV Cardizem infusing at 10ml/hr. Pt had a 2.75 sec pause at approx 18:38, pt asymptomatic. Right radial dressing C/D/I and positive
right radial pulse. Educated pt on activity restrictions w/ right wrist. Patient denies any chest pain or SOB. Sating 95% RA. Aware of POC, call jones in reach.
[2024-03-17 22:15] LABS: Glucose - Point of Care 175 mg/dl (70-99)
[2024-03-17] MEDS: STERILE WATER FOR INJECTION 10 ML IV (22:15)
[2024-03-17] MEDS: ROCEPHIN 1000 MG IV (22:15)
[2024-03-18] VITALS (8 sets, daily range): BP systolic 119–136; BP diastolic 60–79; PULSE 101; BMI 27.4
[2024-03-18] MEDS: MYLICON 80 MG PO (00:45)
[2024-03-18] MEDS: CARDIZEM 125 IV ×2 (03:23→16:20)
[2024-03-18 04:30] LABS: Hematocrit 37.1 % (39.0-52.0); Hemoglobin 12.4 g/dL (13.0-18.0); Mean Corp Hgb Conc. 33.4 g/dL (33.0-37.0); Mean Corpuscular Hgb 28.5 pg (27.0-31.0); Mean Corpuscular Volume 85.3 fL (80.0-94.0); Mean Platelet Volume 10.6 fL (7.4-10.4); Platelet Count 230 10^3/uL (130-400); Red Blood Cell Count 4.35 10^6/uL (4.70-6.10); Red Cell Dist. Width 13.8 % (11.5-14.5); White Blood Cell Count 10.5 10^3/uL (4.8-10.8)
[2024-03-18 04:58] LABS: Blood Urea Nitrogen 17 mg/dl (9-20); Calcium 8.9 mg/dl (8.4-10.2); Carbon Dioxide 25 mmol/L (22-30); Chloride 104 mmol/L (98-107); Estimated Creatinine Clearance 80 ml/min; Glucose 202 mg/dl (70-99); Potassium 3.9 mmol/L (3.5-5.1); Sodium 137 mmol/L (135-145); eGFR > 60.00
--- NOTE | 2024-03-18 07:26 | W.PN.CARDCBS ---
Addendum entered and electronically signed by Talat Kauffman DO 03/18/24 09:11:
I saw and examined the patient.
The Committee Member's note was reviewed and I agree with the note.
Comment:
Patient seen and examined this morning. No acute events overnight. AF with aberrant conduction/PVC noted on telemetry. Rates mildly improved this morning 90-120s on cardizem gtt. No complaints at this time resting comfortably.
GEN: No distress, awake, alert, oriented x3.
HEENT: supple, anicteric, mmm, eomi
LUNGS: CTA b/l, no wheezes
CV: Irregularly irregular, S1/S2, 1/6 syst LSB
EXT: No cyanosis, clubbing, or edema
NEURO: Gross non-focal
SKIN: Warm, pink, dry. No rash
A/P as below
Rate control with BB, IV cardizem; wean GTT as able
ASA, Plavix, Eliquis x 1 week then reduce to Plavix/Eliquis
JUAN M/DCCV tentatively Wednesday
ABX per Primary service
Original Note:
Today's Communication / Plan
-
s/p LAD PCI 03/17
Continue triple therapy x 1 week with aspirin, plavix, and Eliquis
Wean cardizem gtt as able. Continue toprol for rate control.
Continue IV lasix
For possible JUAN M/CV early next week.
Impression / Plan
-
Primary Retread Technician: ANASTASIYA Porter
Assessment:
Presentation with urinary burning frequency, fever
UTI
E.coli bacteremia
Acute HFrEF
NSTEMI, peak trop 5.3
s/p LAD PCI 03/17/2024
Cardiomyopathy, EF 45%
Atrial fibrillation with RVR, new diagnosis
Hyponatremia
Hypokalemia
CAD status post stenting x3 in 2006 at [place]
Diabetes
Hypertension
Hyperlipidemia
GERD
History of anemia/diverticular bleed 2013
History of agent orange exposure
History of shrapnel right leg
ECHO 03/15/24: EF 45%, global hypokinesis, trace MR, mild with peak/mean gradient 17/12 mmHg, ANDERS 1.9 cm�, mild TR, PAP 60 mmHg
Plan:
-Admitted w/ UTI and E. coli bacteremia. Then developed chest pain and SOB 03/14, resulting in cardiology consult.
-Troponin peaked at 5.3 and trended down thereafter.
-Given NSTEMI, he underwent cardiac catheterization 03/17 and had LAD PCI as noted above.
-Will continue triple therapy with aspirin, Plavix, and Eliquis for 1 week, then will stop aspirin and continue on Plavix and Eliquis thereafter.
-Afib is new diagnosis this admission. Rates have been difficult to control. Continues on IV cardizem @10. Toprol uptitrated to 100mg in AM and 50mg in PM.
-HRs improving this AM, however still in the 80s-90s at rest. Likely will need to increase Toprol further to 100mg BID as we wean cardizem.
-Likely plan for JUAN M/CV early next week.
-Continue abx per primary service. awaiting repeat blood cultures
-Diuresing with IV lasix 40mg daily. Cr stable at 0.7. Weight 180lbs 03/18, down 4lbs this admission.
-Echo 03/15 with EF 45%, no prior to compare. Records requested from [place].
-LDL 48. Continue lipitor 40mg daily.
-Hemoglobin A1c 7%.
HPI:Patient is an 83-year-old male with past medical history of CAD status post stenting in 2006 at [place], followed by cardiology at the [facility], diabetes, hypertension, hyperlipidemia, GERD who presented to [facility] for evaluations of
urinary burning and frequency with associated fever. He is being treated for UTI and E. coli bacteremia with antibiotics. He received 2 Liters of fluid since admission. Today noted to complain of some chest discomfort particularly with deep
breathing and coughing, as well as labored respirations and shortness of breath. Troponin resulted at 0.1. Underwent chest CTA negative for PE. Noted to have trace bilateral pleural effusions as well as additional findings consistent with acute
CHF. Reports orthopnea. Patient states he has been on a water pill for some time, although I do not see that on his current med list. EKG with possible lateral T wave inversion, new compared to prior from 2016. Cardiology consulted for evaluation
Progress Note - Retread Technician
Subjective
Date of Service: March 18, 2024
No chest pain, SOB.
Objective
Labs:
03/18/24 03:42
03/18/24 03:42
Labs
Hgb 12.4 g/dL (13.0-18.0) L 03/18/24 03:42
Hct 37.1 % (39.0-52.0) L 03/18/24 03:42
Plt Count 230 10^3/uL (130-400) 03/18/24 03:42
APTT 74.2 Sec (23.4-35.0) H 03/17/24 10:42
Sodium 137 mmol/L (135-145) 03/18/24 03:42
Potassium 3.9 mmol/L (3.5-5.1) 03/18/24 03:42
BUN 17 mg/dl (9-20) 03/18/24 03:42
Creatinine 0.7 mg/dL (0.7-1.3) 03/18/24 03:42
Glucose 202 mg/dl (70-99) H 03/18/24 03:42
Troponins
03/15/24 03/15/24 03/16/24
13:07 19:56 02:14
Troponin I 0.109 H* 2.270 H* D 5.330 H* D
03/16/24
06:31
Troponin I 4.700 H*
Vital Signs and I&O:
Vital Signs
Temp Pulse Resp BP Pulse Ox
97.9 F 94 18 126/77 95
03/18/24 03:25 03/18/24 04:00 03/18/24 03:25 03/18/24 03:26 03/18/24 03:25
Vital Signs
Temp Pulse Resp BP Pulse Ox
97.9 F 94 18 126/77 95
03/18/24 03:25 03/18/24 04:00 03/18/24 03:25 03/18/24 03:26 03/18/24 03:25
Intake & Output
03/16/24 03/17/24 03/18/24 03/19/24
06:59 06:59 06:59 06:59
Intake Total 1036 / 1036 1680 / 1680 600 / 600
Output Total 1675 / 1675 2400 / 2400 1200 / 1200
Balance -639 / -639 -720 / -720 -600 / -600
Physical Exam
Physical Exam
GEN: No distress, awake, alert, oriented x3.
HEENT: supple, anicteric, mmm, eomi
LUNGS: CTA b/l, no wheezes
CV: Irreg, S1/S2, 1/6 syst LSB
EXT: No cyanosis, clubbing, or edema
NEURO: Gross non-focal
SKIN: Warm, pink, dry. No rash
[2024-03-18 07:40] LABS: Glucose - Point of Care 164 mg/dl (70-99)
[2024-03-18] MEDS: ASPIR LOW (ENTERIC COATED) 81 MG PO (08:37)
[2024-03-18] MEDS: ELIQUIS 5 MG PO ×2 (08:37→19:44)
[2024-03-18] MEDS: KCL 30 MEQ PO ×2 (08:37→19:44)
[2024-03-18] MEDS: LASIX 40 MG IV (08:38)
[2024-03-18] MEDS: PROTONIX 40 MG PO (08:38)
[2024-03-18] MEDS: PLAVIX 75 MG PO (08:38)
[2024-03-18] MEDS: VITAMIN B-12 1000 MCG PO (08:39)
[2024-03-18] MEDS: TOPROL XL 100 MG PO (08:39)
[2024-03-18] MEDS: FLUSH (NSS) 2 FLUSH IV (08:39)
[2024-03-18] MEDS: NOVOLOG FLEXPEN 8 UNITS SC ×3 (08:41→17:10)
[2024-03-18] MEDS: NOVOLOG FLEXPEN-LOW RESISTANCE 1 UNITS SC ×2 (08:41→13:17)
--- NOTE | 2024-03-18 09:36 | W.PN.HOSP.TC ---
Today's Communication/Plan
-
continue IV Lasix
continue rate control; JUAN M/CV Wednesday
continue ASA/Plavix/Eliquis for now
continue IV Rocephin
Assessment / Plan
Assessment / Plan
Assessment:
TME likely in setting of acute AR, CHF, UTI/Bacteremia/Sepsis
- possible as well
- workup unremarkable. no focality, defer CT head
- now resolved
Sepsis POA (tachypnea, leukocytosis, UTI/Cystitis)
E. coli bacteremia
- CT: Diffuse urinary bladder wall thickening stranding of the fat surrounding the urinary bladder stranding fat surrounding superior prostate likely UTI infection/cystitis
- s/p sepsis protocol IVF
- continue Rocephin, day 03/21 - at discharge switch to Amoxicillin
- repeat blood cultures NGTD
- bladder scans/SC protocol
Acute NSTEMI
CAD/AR/cardiac stents times 01/2009 [facility]
- Troponin peaked at 5.3
- s/p LHC: s/p LAD PCI 03/17/2024
- continue ASA/Plavix/Eliquis x 1 week then Plavix/Eliquis only
- continue BB/Statin
Acute CHF - systolic
- Echo: Normal LV size/thickness, reduced systolic function with EF 45%, Global hypokinesis, trace MR, mild , mild TR
- continue IV Lasix - requires intensive monitoring of lytes/weights etc
- continue beta-gregg
New onset Parox Rapid A.Fib
- continue Eliquis [id number] score of 5 for age, vascular disease, HTN, CHF
- continue IV Cardizem drip - requires intensive monitoring tele
- continue Toprol - up-titrating for better HR
- for JUAN M/CV Wednesday
Acute hypoxic respiratory insufficiency related to acute CHF
- resolved, on room air
Loose stools
- stool studies negative
Hyponatremia
- improved with IVF
Hypokalemia
- replete prn doses and continue standing KCL 30meq BID (GOVERNMENT AFFAIRS DIRECTOR dose)
Essential HTN
- stop HCTZ/Nifedipine
- Toprol started
DM2/diabetic neuropathy
- A1c is 7.0%
- Resume Lantus - home dose is 45 units, resume as 20 units here (10 units if NPO)
- resume Aspart - home dose is 15 units with meals; resume here as 5 units
- continue SSI
HLD
- Continue Statin
GI bleed diverticular 2013
Diverticulosis diverticulitis Hx
- continue omeprazole
Hx anemia
- Hgb 14
PTSD
Migraines
- no current headache
History of agent orange exposure
History of shrapnel right leg
DVT prophylaxis: Eliquis
Code: Full
Anticipated Discharge: > 48 hours
Subjective/Interval History
-
Date of Service: March 18, 2024
denies any sob or cp
upset over dietary restrictions
Objective Data
-
Labs:
Laboratory Results
03/18/24
03:42
WBC 10.5
Hgb 12.4 L
Hct 37.1 L
Plt Count 230
Sodium 137
Potassium 3.9
Chloride 104
Carbon Dioxide 25
BUN 17
Creatinine 0.7
Glucose 202 H
Calcium 8.9
Vital Signs:
Vital Signs
Temp Pulse Resp BP Pulse Ox
98.1 F 88 16 132/79 97
03/18/24 07:36 03/18/24 07:37 03/18/24 07:36 03/18/24 07:37 03/18/24 07:36
I&O
03/17/24 03/18/24 03/19/24
06:59 06:59 06:59
Intake Total 1680 / 1680 600 / 600
Output Total 2400 / 2400 1200 / 1200
Balance -720 / -720 -600 / -600
Physical Exam
-
General: No Apparent Distress
HEENT: Normocephalic and Atraumatic
Respiratory: Negative Wheezes or Rales
Cardiac: Regular Rhythm and S1/S2
GI: Soft and Nontender
Genito-urinary: No Costovertebral Tender
Musculoskeletal: No Edema
Neuro: AO x 3
Hematologic / Lymphatic: No Lymphadenopathy
Psych: Calm
Data Reviewed
-
Total Time Spent with Patient (in minutes): 51
Labs: Labs Reviewed by me
--- NOTE | 2024-03-18 10:31 | PTCARENOTE ---
Received patient this morning resting in bed. Remains in AF, HR in the 80's, cardizem gtt infusing at 10mg/hr. Patient denies any chest pain, palpitations or sob. Call jones within reach, using urinal and bedside commode independently.
[2024-03-18 12:06] LABS: Glucose - Point of Care 196 mg/dl (70-99)
[2024-03-18] MEDS: LANTUS 0.200000000000000011 UNITS SC (13:16)
[2024-03-18 17:10] LABS: Glucose - Point of Care 101 mg/dl (70-99)
[2024-03-18] MEDS: NOVOLOG FLEXPEN-LOW RESISTANCE SC (17:10)
[2024-03-18] MEDS: LIPITOR 40 MG PO (18:08)
[2024-03-18] MEDS: TOPROL XL 50 MG PO (19:43)
[2024-03-18 21:20] LABS: Glucose - Point of Care 155 mg/dl (70-99)
[2024-03-18] MEDS: STERILE WATER FOR INJECTION 10 ML IV (22:08)
[2024-03-18] MEDS: ROCEPHIN 1000 MG IV (22:08)
[2024-03-19 03:05] VITALS: BP 121/81
[2024-03-19] MEDS: CARDIZEM 125 IV ×2 (03:07→19:22)
[2024-03-19 03:17] VITALS: BMI 27.4
[2024-03-19 03:36] LABS: Hematocrit 38.2 % (39.0-52.0); Hemoglobin 12.5 g/dL (13.0-18.0); Mean Corp Hgb Conc. 32.7 g/dL (33.0-37.0); Mean Corpuscular Hgb 28.1 pg (27.0-31.0); Mean Corpuscular Volume 85.8 fL (80.0-94.0); Mean Platelet Volume 10.1 fL (7.4-10.4); Platelet Count 258 10^3/uL (130-400); Red Blood Cell Count 4.45 10^6/uL (4.70-6.10); Red Cell Dist. Width 13.9 % (11.5-14.5); White Blood Cell Count 8.4 10^3/uL (4.8-10.8)
[2024-03-19 04:01] LABS: Blood Urea Nitrogen 19 mg/dl (9-20); Calcium 8.8 mg/dl (8.4-10.2); Carbon Dioxide 24 mmol/L (22-30); Chloride 106 mmol/L (98-107); Estimated Creatinine Clearance 70 ml/min; Glucose 199 mg/dl (70-99); Potassium 3.8 mmol/L (3.5-5.1); Sodium 140 mmol/L (135-145); eGFR > 60.00
[2024-03-19 07:54] VITALS: BP 140/62
[2024-03-19 07:57] LABS: Glucose - Point of Care 185 mg/dl (70-99)
--- NOTE | 2024-03-19 08:38 | PTCARENOTE ---
Received patient this morning resting in bed. Remains in AF, rate controlled with IV cardizem infusing at 10mg/hr. Call jones within reach, will continue to monitor.
[2024-03-19] MEDS: NOVOLOG FLEXPEN 8 UNITS SC ×3 (08:53→18:27)
[2024-03-19] MEDS: NOVOLOG FLEXPEN-LOW RESISTANCE 1 UNITS SC ×2 (08:53→18:27)
[2024-03-19] MEDS: ELIQUIS 5 MG PO ×2 (08:54→19:22)
[2024-03-19] MEDS: KCL 30 MEQ PO ×2 (08:54→19:22)
[2024-03-19] MEDS: ASPIR LOW (ENTERIC COATED) 81 MG PO (08:54)
[2024-03-19] MEDS: LASIX 40 MG IV (08:55)
[2024-03-19] MEDS: PROTONIX 40 MG PO (08:55)
[2024-03-19] MEDS: PLAVIX 75 MG PO (08:55)
[2024-03-19] MEDS: LANTUS 0.200000000000000011 UNITS SC (08:55)
[2024-03-19] MEDS: FLUSH (NSS) 2 FLUSH IV (08:56)
[2024-03-19] MEDS: VITAMIN B-12 1000 MCG PO (08:56)
[2024-03-19] MEDS: TOPROL XL 100 MG PO (08:56)
[2024-03-19 11:30] VITALS: BP 136/81
[2024-03-19 12:23] LABS: Glucose - Point of Care 213 mg/dl (70-99)
[2024-03-19] MEDS: NOVOLOG FLEXPEN-LOW RESISTANCE 2 UNITS SC (12:27)
--- NOTE | 2024-03-19 15:13 | W.PN.HOSP.TC ---
Today's Communication/Plan
-
continue IV Lasix
continue rate control; JUAN M/CV Wednesday
continue ASA/Plavix/Eliquis for now
continue IV Rocephin
Assessment / Plan
Assessment / Plan
Assessment:
TME likely in setting of acute TX, CHF, UTI/Bacteremia/Sepsis
- possible as well
- workup unremarkable. no focality, defer CT head
- now resolved
Sepsis POA (tachypnea, leukocytosis, UTI/Cystitis)
E. coli bacteremia
- CT: Diffuse urinary bladder wall thickening stranding of the fat surrounding the urinary bladder stranding fat surrounding superior prostate likely UTI infection/cystitis
- s/p sepsis protocol IVF
- continue Rocephin, day 04/21 - at discharge switch to Amoxicillin
- repeat blood cultures NGTD
- bladder scans/SC protocol
Acute NSTEMI
CAD/TX/cardiac stents times 01/2009 [facility]
- Troponin peaked at 5.3
- s/p LHC: s/p LAD PCI 03/17/2024
- continue ASA/Plavix/Eliquis x 1 week then Plavix/Eliquis only
- continue BB/Statin
Acute CHF - systolic
- Echo: Normal LV size/thickness, reduced systolic function with EF 45%, Global hypokinesis, trace MR, mild , mild TR
- continue IV Lasix - requires intensive monitoring of lytes/weights etc
- continue beta-gregg
New onset Parox Rapid A.Fib
- continue Eliquis [id number] score of 5 for age, vascular disease, HTN, CHF
- continue IV Cardizem drip - requires intensive monitoring tele
- continue Toprol - up-titrating for better HR
- for JUAN M/CV Wednesday
Acute hypoxic respiratory insufficiency related to acute CHF
- resolved, on room air
Loose stools
- stool studies negative
Hyponatremia
- improved with IVF
Hypokalemia
- replete prn doses and continue standing KCL 30meq BID (PIGSKIN TRIMMER dose)
Essential HTN
- stop HCTZ/Nifedipine
- Toprol started
DM2/diabetic neuropathy
- A1c is 7.0%
- Resume Lantus - home dose is 45 units, resume as 20 units here (10 units if NPO)
- resume Aspart - home dose is 15 units with meals; resume here as 5 units
- continue SSI
HLD
- Continue Statin
GI bleed diverticular 2013
Diverticulosis diverticulitis Hx
- continue omeprazole
Hx anemia
- Hgb 14
PTSD
Migraines
- no current headache
History of agent orange exposure
History of shrapnel right leg
DVT prophylaxis: Eliquis
Code: Full
Anticipated Discharge: 24 - 48 hours
Subjective/Interval History
-
Date of Service: March 19, 2024
denies any new complaints
Objective Data
-
Labs:
Laboratory Results
03/19/24
03:14
WBC 8.4
Hgb 12.5 L
Hct 38.2 L
Plt Count 258
Sodium 140
Potassium 3.8
Chloride 106
Carbon Dioxide 24
BUN 19
Creatinine 0.8
Glucose 199 H
Calcium 8.8
Vital Signs:
Vital Signs
Temp Pulse Resp BP Pulse Ox
98 F 64 20 136/81 98
03/19/24 11:28 03/19/24 12:00 03/19/24 11:28 03/19/24 11:30 03/19/24 11:28
I&O
03/18/24 03/19/24 03/20/24
06:59 06:59 06:59
Intake Total 600 / 600 1590 / 1590
Output Total 1200 / 1200 800 / 800 1220 / 1220
Balance -600 / -600 790 / 790 -1220 / -1220
Physical Exam
-
General: No Apparent Distress
HEENT: Normocephalic and Atraumatic
Cardiac: Irregular Rhythm
Genito-urinary: No Costovertebral Tender
Musculoskeletal: No Edema
Neuro: AO x 3
Hematologic / Lymphatic: No Lymphadenopathy
Psych: Calm
Data Reviewed
-
Total Time Spent with Patient (in minutes): 51
Labs: Labs Reviewed by me
[2024-03-19 16:07] VITALS: BP 143/90
[2024-03-19 17:52] LABS: Glucose - Point of Care 165 mg/dl (70-99)
[2024-03-19] MEDS: LIPITOR 40 MG PO (18:28)
[2024-03-19 19:18] VITALS: BP 146/76
[2024-03-19] MEDS: TOPROL XL 50 MG PO (19:22)
--- NOTE | 2024-03-19 19:55 | W.PN.CARDCBS ---
Today's Communication / Plan
-
N.p.o. after midnight for JUAN M/DCCV tomorrow morning 03/20/2024
Antibiotics per primary service
Aspirin, Plavix, Eliquis x 1 week post PCI
Impression / Plan
-
Primary Cloth Shrinker: ANASTASIYA Porter
Assessment:
Presentation with urinary burning frequency, fever
UTI
E.coli bacteremia
Acute HFrEF
NSTEMI, peak trop 5.3
s/p LAD PCI 03/17/2024
Cardiomyopathy, EF 45%
Atrial fibrillation with RVR, new diagnosis
Hyponatremia
Hypokalemia
CAD status post stenting x3 in 2006 at [place]
Diabetes
Hypertension
Hyperlipidemia
GERD
History of anemia/diverticular bleed 2013
History of agent orange exposure
History of shrapnel right leg
ECHO 03/15/24: EF 45%, global hypokinesis, trace MR, mild with peak/mean gradient 17/12 mmHg, ANDERS 1.9 cm�, mild TR, PAP 60 mmHg
Plan:
-Admitted w/ UTI and E. coli bacteremia. Then developed chest pain and SOB 03/14, resulting in cardiology consult.
-Troponin peaked at 5.3 and trended down thereafter.
-Given NSTEMI, he underwent cardiac catheterization 03/17 and had LAD PCI as noted above.
-Will continue triple therapy with aspirin, Plavix, and Eliquis for 1 week, then will stop aspirin and continue on Plavix and Eliquis thereafter.
-Afib is new diagnosis this admission. Rates have been difficult to control. Continues on IV cardizem @10. Toprol uptitrated to 100mg in AM and 50mg in PM.
-HRs improving this AM, however still in the 80s-90s at rest. Continue beta-gregg (Toprol-XL 100 mg a.m., 50 mg p.m.), wean Cardizem.
-JUAN M/DCCV 03/20/2024, n.p.o. after midnight
-Continue abx per primary service. awaiting repeat blood cultures
-Diuresing with IV lasix 40mg daily. Cr stable at 0.7. Weight 180lbs 03/18, down 4lbs this admission. Continues to downtrend
-Echo 03/15 with EF 45%, no prior to compare. Records requested from [place].
-LDL 48. Continue lipitor 40mg daily.
-Hemoglobin A1c 7%.
HPI:Patient is an 83-year-old male with past medical history of CAD status post stenting in 2006 at [place], followed by cardiology at the [facility], diabetes, hypertension, hyperlipidemia, GERD who presented to [facility] for evaluations of
urinary burning and frequency with associated fever. He is being treated for UTI and E. coli bacteremia with antibiotics. He received 2 Liters of fluid since admission. Today noted to complain of some chest discomfort particularly with deep
breathing and coughing, as well as labored respirations and shortness of breath. Troponin resulted at 0.1. Underwent chest CTA negative for PE. Noted to have trace bilateral pleural effusions as well as additional findings consistent with acute
CHF. Reports orthopnea. Patient states he has been on a water pill for some time, although I do not see that on his current med list. EKG with possible lateral T wave inversion, new compared to prior from 2016. Cardiology consulted for evaluation
Progress Note - Cloth Shrinker
Subjective
Date of Service: March 19, 2024
Patient seen and examined. No acute events overnight. Patient resting comfortably in bed without complaint. Patient Nuys chest pain, shortness of breath, palpitations, or weakness.AF rate controlled on telemetry.
Objective
Labs:
03/19/24 03:14
03/19/24 03:14
Labs
Hgb 12.5 g/dL (13.0-18.0) L 03/19/24 03:14
Hct 38.2 % (39.0-52.0) L 03/19/24 03:14
Plt Count 258 10^3/uL (130-400) 03/19/24 03:14
APTT 74.2 Sec (23.4-35.0) H 03/17/24 10:42
Sodium 140 mmol/L (135-145) 03/19/24 03:14
Potassium 3.8 mmol/L (3.5-5.1) 03/19/24 03:14
BUN 19 mg/dl (9-20) 03/19/24 03:14
Creatinine 0.8 mg/dL (0.7-1.3) 03/19/24 03:14
Glucose 199 mg/dl (70-99) H 03/19/24 03:14
Vital Signs and I&O:
Vital Signs
Temp Pulse Resp BP Pulse Ox
98.3 F 83 20 146/76 95
03/19/24 19:18 03/19/24 19:18 03/19/24 19:18 03/19/24 19:18 03/19/24 19:18
Vital Signs
Temp Pulse Resp BP Pulse Ox
98.3 F 83 20 146/76 95
03/19/24 19:18 03/19/24 19:18 03/19/24 19:18 03/19/24 19:18 03/19/24 19:18
Intake & Output
03/17/24 03/18/24 03/19/24 03/20/24
06:59 06:59 06:59 06:59
Intake Total 1680 / 1680 600 / 600 1590 / 1590 390 / 390
Output Total 2400 / 2400 1200 / 1200 800 / 800 1720 / 1720
Balance -720 / -720 -600 / -600 790 / 790 -1330 / -1330
Physical Exam
Physical Exam
GEN: No distress, awake, alert, oriented x3.
HEENT: supple, anicteric, mmm, eomi
LUNGS: CTA b/l, no wheezes
CV: Irregularly irregular, S1/S2, 1/6 syst LSB
EXT: No cyanosis, clubbing, or edema
NEURO: Gross non-focal
SKIN: Warm, pink, dry. No rash
--- NOTE | 2024-03-19 21:16 | PTCARENOTE ---
Pt rec'd at change of shift watching tv no complaints. Controlled Afib on telemetry with Cardizem gtt infusing at 5 mg/hr. call jones within reach.
[2024-03-19 22:18] VITALS: BP 147/93
[2024-03-19] MEDS: STERILE WATER FOR INJECTION 10 ML IV (22:24)
[2024-03-19] MEDS: ROCEPHIN 1000 MG IV (22:24)
[2024-03-19 22:55] LABS: Glucose - Point of Care 159 mg/dl (70-99)
[2024-03-20 05:26] VITALS: BP 125/70
[2024-03-20] MEDS: TYLENOL 650 MG PO (05:47)
--- NOTE | 2024-03-20 05:50 | PTCARENOTE ---
Pt awoken for VS and am labs c/o h/a. Medicated with Tylenol. Remains npo after mn for CV today. Cardizem gtt continued at 5 mg hr with ht rate 60-80's with small < 2 sec pauses noted. call jones within reach.
[2024-03-20 05:51] LABS: Hematocrit 37.6 % (39.0-52.0); Hemoglobin 12.6 g/dL (13.0-18.0); Mean Corp Hgb Conc. 33.5 g/dL (33.0-37.0); Mean Corpuscular Hgb 28.6 pg (27.0-31.0); Mean Corpuscular Volume 85.5 fL (80.0-94.0); Platelet Count 308 10^3/uL (130-400); White Blood Cell Count 9.5 10^3/uL (4.8-10.8)
[2024-03-20 06:20] LABS: Blood Urea Nitrogen 13 mg/dl (9-20); Calcium 8.7 mg/dl (8.4-10.2); Carbon Dioxide 24 mmol/L (22-30); Chloride 106 mmol/L (98-107); Estimated Creatinine Clearance 93 ml/min; Glucose 131 mg/dl (70-99); Sodium 138 mmol/L (135-145); eGFR > 60.00
[2024-03-20 07:22] VITALS: BP 122/81
[2024-03-20 07:25] LABS: Glucose - Point of Care 129 mg/dl (70-99)
[2024-03-20] MEDS: NOVOLOG FLEXPEN-LOW RESISTANCE SC ×2 (08:19→12:12)
[2024-03-20] MEDS: NOVOLOG FLEXPEN SC (08:19)
--- NOTE | 2024-03-20 08:52 | W.PN.CARDCBS ---
Today's Communication / Plan
-
TEEcv today
Cont IV diuresis
Cont beta gregg
Impression / Plan
-
.
Primary [employer]: ANASTASIYA Porter
Impression:
Presentation with urinary burning frequency, fever
UTI
E.coli bacteremia
Acute HFrEF
NSTEMI, peak trop 5.3
s/p LAD PCI 03/17/2024
Cardiomyopathy, EF 45%
Atrial fibrillation with RVR, new diagnosis
Hyponatremia
Hypokalemia
CAD status post stenting x3 in 2006 at [place]
Diabetes
Hypertension
Hyperlipidemia
GERD
History of anemia/diverticular bleed 2013
History of agent orange exposure
History of shrapnel right leg
Hemoglobin A1c 7%.
Echo Mar 15 2024: EF 45%, global hypokinesis, trace MR, mild with peak/mean gradient 17/12 mmHg, ANDERS 1.9 cm�, mild TR, PAP 60 mmHg
Plan:
-Admitted w/ UTI and E. coli bacteremia. Then developed chest pain and SOB 03/14, resulting in cardiology consult. Troponin peaked at 5.3 and trended down thereafter.
Given NSTEMI, he underwent cardiac catheterization 03/17 and had LAD PCI.
Cont DAPT with ASA and Plavix.
Will continue triple therapy with aspirin, Plavix, and Eliquis for 1 week, then will stop aspirin and continue on Plavix and Eliquis thereafter.
Afib is new diagnosis this admission with difficult to control rates.
Cont IV Cardizem. Toprol has been uptitrated to 100mg in AM and 50mg in PM.
Plan is for JUAN M/CV Mar 20 2024.
Cont abx and support care as per primary service
BC
Cont IV lasix 40 mg daily diuresis. Cr stable. Wt 180 03/19, down about 4 lbs this admit.
-Echo 03/15 with EF 45%, no prior to compare. Records requested from [place].
Cont Lipitor; LDL 48.
HPI:Patient is an 83-year-old male with past medical history of CAD status post stenting in 2006 at [place], followed by cardiology at the [facility], diabetes, hypertension, hyperlipidemia, GERD who presented to [facility] for evaluations of
urinary burning and frequency with associated fever. He is being treated for UTI and E. coli bacteremia with antibiotics. He received 2 Liters of fluid since admission. Today noted to complain of some chest discomfort particularly with deep
breathing and coughing, as well as labored respirations and shortness of breath. Troponin resulted at 0.1. Underwent chest CTA negative for PE. Noted to have trace bilateral pleural effusions as well as additional findings consistent with acute
CHF. Reports orthopnea. Patient states he has been on a water pill for some time, although I do not see that on his current med list. EKG with possible lateral T wave inversion, new compared to prior from 2016. Cardiology consulted for evaluation
Progress Note - [employer]
Subjective
Date of Service: March 20, 2024
Pt seen and examined. No complaints. No chest pain or shortness of breath.
Objective
Labs:
03/20/24 05:39
03/20/24 05:39
Labs
Hgb 12.6 g/dL (13.0-18.0) L 03/20/24 05:39
Hct 37.6 % (39.0-52.0) L 03/20/24 05:39
Plt Count 308 10^3/uL (130-400) 03/20/24 05:39
APTT 74.2 Sec (23.4-35.0) H 03/17/24 10:42
Sodium 138 mmol/L (135-145) 03/20/24 05:39
Potassium 4.0 mmol/L (3.5-5.1) 03/20/24 05:39
BUN 13 mg/dl (9-20) 03/20/24 05:39
Creatinine 0.6 mg/dL (0.7-1.3) L 03/20/24 05:39
Glucose 131 mg/dl (70-99) H 03/20/24 05:39
Vital Signs and I&O:
Vital Signs
Temp Pulse Resp BP Pulse Ox
97.9 F 81 16 122/81 97
03/20/24 07:20 03/20/24 08:00 03/20/24 07:20 03/20/24 07:22 03/20/24 07:20
Vital Signs
Temp Pulse Resp BP Pulse Ox
97.9 F 81 16 122/81 97
03/20/24 07:20 03/20/24 08:00 03/20/24 07:20 03/20/24 07:22 03/20/24 07:20
Intake & Output
03/18/24 03/19/24 03/20/24 03/21/24
06:59 06:59 06:59 06:59
Intake Total 600 / 600 1590 / 1590 390 / 390
Output Total 1200 / 1200 800 / 800 2820 / 2820 300 / 300
Balance -600 / -600 790 / 790 -2430 / -2430 -300 / -300
Physical Exam
Physical Exam
General: No acute distress, AAOX3
Neck: Negative JVD
Heart: Irregularly irregular, Negative S3 positive S1/S2, Negative S4, No murmur
Lungs: CTA b/l, negative wheezes/rales/rhonchi
Abd: Positive BS, NT/ND, neg rebound/rigidity/guarding
Ext: Negative cyanosis/clubbing/edema
Neuro: nonfocal
--- NOTE | 2024-03-20 08:57 | W.PN.HOSP.TC ---
Today's Communication/Plan
-
for JUAN M/CV today
continue medical rx
dischargable home post cardio clearance
Assessment / Plan
Assessment / Plan
TME likely in setting of acute NM, CHF, UTI/Bacteremia/Sepsis - resolved
- possible as well
- workup unremarkable. no focality, defer CT head
Sepsis POA (tachypnea, leukocytosis, UTI/Cystitis)
E. coli bacteremia
- CT: Diffuse urinary bladder wall thickening stranding of the fat surrounding the urinary bladder stranding fat surrounding superior prostate likely UTI infection/cystitis
- s/p sepsis protocol IVF
- continue Rocephin, day 05/21 - at discharge switch to Amoxicillin
- repeat blood cultures NGTD
- bladder scans/SC protocol
Acute NSTEMI
CAD/NM/cardiac stents times 01/2009 [facility]
- Troponin peaked at 5.3
- s/p LHC: s/p LAD PCI 03/17/2024
- continue ASA/Plavix/Eliquis x 1 week then Plavix/Eliquis only
- continue BB/Statin
Acute CHF - systolic
- Echo: Normal LV size/thickness, reduced systolic function with EF 45%, Global hypokinesis, trace MR, mild , mild TR
- continue IV Lasix - requires intensive monitoring of lytes/weights etc
- continue beta-gregg
New onset Parox Rapid A.Fib
- continue Eliquis [id number] score of 5 for age, vascular disease, HTN, CHF
- continue IV Cardizem drip - requires intensive monitoring tele
- continue Toprol - up-titrating for better HR
- for JUAN M/CV Wednesday
Acute hypoxic respiratory insufficiency related to acute CHF
- resolved, on room air
Loose stools
- stool studies negative
Hyponatremia
- improved with IVF
Hypokalemia
- replete prn doses and continue standing KCL 30meq BID (CHIEF RISK OFFICER dose)
Essential HTN
- stop HCTZ/Nifedipine
- Toprol started
DM2/diabetic neuropathy
- A1c is 7.0%
- Resume Lantus - home dose is 45 units, resume as 20 units here (10 units if NPO)
- resume Aspart - home dose is 15 units with meals; resume here as 5 units
- continue SSI
HLD - Continue Statin
GI bleed diverticular 2013 - continue omeprazole
Diverticulosis diverticulitis Hx
Hx anemia- Hgb 14
PTSD
Migraines- no current headache
History of agent orange exposure
History of shrapnel right leg
DVT prophylaxis: Eliquis
Code: Full
Anticipated Discharge: Within 24 hours
Subjective/Interval History
-
Date of Service: March 20, 2024
resting comfortably in bed
HR remains controlled in afib
no acute issue reported
Objective Data
-
Labs:
Laboratory Results
03/20/24
05:39
WBC 9.5
Hgb 12.6 L
Hct 37.6 L
Plt Count 308
Sodium 138
Potassium 4.0
Chloride 106
Carbon Dioxide 24
BUN 13
Creatinine 0.6 L
Glucose 131 H
Calcium 8.7
Vital Signs:
Vital Signs
Temp Pulse Resp BP Pulse Ox
97.9 F 81 16 122/81 97
03/20/24 07:20 03/20/24 08:00 03/20/24 07:20 03/20/24 07:22 03/20/24 07:20
I&O
03/19/24 03/20/24 03/21/24
06:59 06:59 06:59
Intake Total 1590 / 1590 390 / 390
Output Total 800 / 800 2820 / 2820 300 / 300
Balance 790 / 790 -2430 / -2430 -300 / -300
Review of Systems
-
Respiratory: Reports No Symptoms
Cardiac: Reports No Symptoms
Abdomen/GI: Reports No Symptoms
Physical Exam
-
General: Negative Respiratory Distress or Appears in Distress
HEENT: Negative Oxygen
Musculoskeletal: No Edema
Neuro: Awake, Alert, Oriented and No Motor Deficits
[2024-03-20] MEDS: ELIQUIS 5 MG PO (09:11)
[2024-03-20] MEDS: PLAVIX 75 MG PO (09:11)
[2024-03-20] MEDS: ASPIR LOW (ENTERIC COATED) 81 MG PO (09:11)
[2024-03-20 09:14] VITALS: BP 140/83
[2024-03-20] MEDS: TOPROL XL 100 MG PO (09:14)
--- NOTE | 2024-03-20 10:00 | PTCARENOTE ---
Pt left for JUAN M/CV. Cardizem infusing per protocol. AOx3, no complaints of pain. Son at bedside. Report given to RN.
--- NOTE | 2024-03-20 11:28 | ITS.CL.CARDI ---
Radio Maintainer - Cardioversion
Cardioversion
Procedure Report:
Date of Procedure: Mar 20 2024
Procedure: Cardioversion
Indication: Symptomatic atrial fibrillation
Performing Physician: Cb Graham DO, FACC
Technique: The patient was brought to the holding area. Signed informed consent was obtained. A time out was called and performed. The patient was anesthetized by the anesthesia service. Anticoagulation status was reviewed and appropriate. R2 pads
were placed anteriorly and posteriorly. Following successful JUAN M, a 200 J synchronized biphasic shock restored normal sinus rhythm without significant bradycardia. There were no complications.
Conclusion: Uncomplicated cardioversion from atrial fibrillation to sinus rhythm.
Recommendation: Routine post cardioversion care. Continue remote computer terminal operator anticoagulation.
[2024-03-20] MEDS: LASIX 40 MG IV (11:59)
[2024-03-20] MEDS: PROTONIX 40 MG PO (11:59)
[2024-03-20] MEDS: KCL 30 MEQ PO (11:59)
[2024-03-20] MEDS: VITAMIN B-12 1000 MCG PO (11:59)
[2024-03-20 12:00] VITALS: BP 118/66
--- NOTE | 2024-03-20 12:10 | PTCARENOTE ---
Pt returned from forestry laborer. SB on tele monitor. VSS. Call jones within reach.
[2024-03-20 12:11] LABS: Glucose - Point of Care 142 mg/dl (70-99)
[2024-03-20] MEDS: LANTUS 0.200000000000000011 UNITS SC (12:56)
[2024-03-20] MEDS: NOVOLOG FLEXPEN 8 UNITS SC (12:56)
--- NOTE | 2024-03-20 13:18 | CM ---
dc plan remains home when medically stable.
[2024-03-20 15:43] VITALS: BP 140/72
--- NOTE | 2024-03-21 17:05 | W.DCSUMMARY ---
Discharge Summary
Discharge Data
Date of Admission: 03/13/24
Date of Discharge: 03/20/24
-
Pending Results: No
Hospital Course
Discharging Physician : Dr Emigdio Sims
Disposition : Home with home care
Primary care physician : Dr Sigrid Butterfield
Principal Discharge diagnosis :
Escherichia coli urinary tract infection and bacteremia
Toxic metabolic encephalopathy
Sepsis
Non-ST segment elevation myocardial infarction
Acute systolic congestive heart failure
Paroxysmal atrial fibrillation with rapid ventricular rate
Acute hypoxic respite insufficiency
Electrolyte imbalance
Chronic Discharge diagnosis :
Essential hypertension
Type 2 diabetes mellitus
Hyperlipidemia
History of diverticular bleed
History of diverticulitis
Posttraumatic stress disorder
History of agent orange exposure
History of shrapnel right leg
Hospital Course :
Patient is a 83 year male with above-mentioned past medical history was brought in for having episodes of fever generalized weakness. In ER patient diagnosed to be septic with possible source urinary in nature. CT abdomen pelvis in ER was showing
diffuse urinary bladder wall thickening. Patient was started on broad-spectrum antibiotic and cultures were collected. Patient culture reported to be positive for E. coli in blood and urine. Was provided IV Rocephin therapy during the hospital
course and at discharge provided omnicef course.
Patient also noted to having new significant troponin elevation with peak troponin of 5.3. Patient have history of coronary disease and concern of new NSTEMI this admission. Cardiology was involved in care and patient was started on heparin drip.
Patient underwent left heart catheterization showing LAD stenosis which was intervened upon with GABINO. Cardiology recommended for patient to be managed on triple antiplatelet therapy with aspirin/Plavix/Eliquis for 1 week followed by Plavix and
Eliquis lifelong.
Patient also have new diagnosis of paroxysmal atrial fibrillation with fast heart rate this admit. Patient CHADS2 score of 5 and recommended to be started on anticoagulation. Patient initially was started on IV Cardizem for rate control without
significant improvement. Patient underwent transesophageal echocardiogram and cardioversion. Post cardioversion patient developed sinus bradycardia and home dose of Toprol was decreased. After improvement patient was discharged on low-dose of
Toprol and regular dose of Eliquis therapy.
Patient also was diuresed for systolic heart failure. Echocardiogram showing reduced EF of 45%. At discharge patient transition to oral Lasix 40 mg daily.
Patient to follow-up with cardiology in office.
Important imaging findings :
None
Procedure findings :
None
Discharge Plan
-
Patient Disposition: Home (Routine Discharge)
Discharge Diagnosis/Procedures: NSTEMI, Angioplasty and stent x1 to Left Anterior Descending artery, Afib/RVR, Ecoli bacteremia
Condition: Fair
Diet: Low Fat, 2 Gram Sodium and Diabetic, Carb Controlled
Activity: As tolerated
Driving Restrictions: No driving for 24 hours
Bathing Restrictions: OK to Shower
Stand Alone Forms: DC Instructions- Cath/EP Lab
Referrals:
[facility] Cardiac Rehab [Outside] - 04/27/24 7:30 am
(Cardiac Rehab Orientation and� First Exercise appointment is on April at 7:30 AM.
The Cardiac Rehab gym is located on the first floor of the [facility].)
Sigrid Butterfield MD [Family Provider] -
Additional Discharge Medication Instructions: You will take aspirin, plavix and eliquis for 1 week. Then STOP aspirin, and remain on plavix/eliquis only
Prescriptions:
New
Eliquis 5 mg tablet
5 mg PO BID Qty: 60 1RF
clopidogrel [Plavix] 75 mg tablet
75 mg PO DAILY Qty: 30 1RF
atorvastatin 40 mg Tablet
40 mg PO QPM Qty: 30 2RF
metoprolol succinate 25 mg Tablet Extended Release 24 Hr
25 mg PO DAILY Qty: 30 2RF
furosemide [Lasix] 40 mg tablet
40 mg PO DAILY Qty: 30 0RF
cefdinir 300 mg capsule
300 mg PO BID Qty: 14 0RF
Continued
cyanocobalamin (vitamin B-12) 1,000 mcg Tablet
1,000 mcg PO DAILY
potassium chloride 10 mEq Tablet Extended Release
30 meq PO BID
insulin aspart U-100 100 unit/mL Solution
4 unit SC DAILYPRN PRN (Reason: with a snack)
insulin aspart U-100 [Novolog FlexPen U-100 Insulin] 100 unit/mL (3 mL) Insulin Pen
15 unit SC DAILY
insulin aspart U-100 [Novolog FlexPen U-100 Insulin] 100 unit/mL (3 mL) Insulin Pen
16 unit SC QPM
omeprazole 20 mg Tablet,Delayed Release (Dr/Ec)
20 mg PO DAILY
aspirin 81 mg Tablet,Delayed Release (Dr/Ec)
81 mg PO DAILY Qty: 7 0RF
Rx Instructions:
LAST DOSE ON 03/25/24 AND THEN STOP
Changed
insulin glargine [Lantus U-100 Insulin] 100 unit/mL Solution
30 unit SC DAILY Qty: 0 0RF
Discontinued
nifedipine [Nifediac CC] 90 mg Tablet Extended Release
180 mg PO DAILY
simvastatin [Zocor] 80 mg Tablet
80 mg PO QPM
Discharge Orders:
Discharge Patient (As Directed); Ordered 03/20/24
Ordered By: Emigdio Sims
Care Plan Goals
Care Plan Goals:
Problem: Readiness for enhanced knowledge related to diagnosis and treatment plan
Goal: Understand your diagnosis and treatment plan needs, including medications if applicable.
Instructions: Know your diagnosis, underlying causes and treatment plan options, including medications if applicable. Consult with your health care team to learn about your diagnosis and treatment plan, including medications if applicable.
Discharge Date and Time
Discharge Date/Time: 03/20/24 16:42
Print Language: LITHUANIAN
== END 2024-03-20 16:42 | disposition home or self-care (01) | DRG 853 ==
LOC: IVU 20:18
PROVIDERS: Clinical Nurse Specialist Family Health; Emergency Medicine; Internal Medicine; Internal Medicine Interventional Cardiology; Nuclear Medicine Nuclear Cardiology; Nurse Practitioner Family; Physician Assistant; ADMITTING PHYSICIAN Internal Medicine; ATTENDING PHYSICIAN Hospitalist; CONSULT PHYSICIAN Internal Medicine Cardiovascular Disease; EMERGENCY PHYSICIAN Emergency Medicine; FAMILY PHYSICIAN Internal Medicine
PROC: B2111ZZ Fluoroscopy of Multiple Coronary Arteries using Low Osmolar Contrast (ICD-10-PCS; 2024-03-17)
PROC: 4A023N7 Measurement of Cardiac Sampling and Pressure, Left Heart, Percutaneous Approach (ICD-10-PCS; 2024-03-17)
PROC: 027034Z Dilation of Coronary Artery, One Artery with Drug-eluting Intraluminal Device, Percutaneous Approach (ICD-10-PCS; 2024-03-17)
PROC: B2151ZZ Fluoroscopy of Left Heart using Low Osmolar Contrast (ICD-10-PCS; 2024-03-17)
PROC: B24BZZ4 Ultrasonography of Heart with Aorta, Transesophageal (ICD-10-PCS; 2024-03-20)
PROC: 5A2204Z Restoration of Cardiac Rhythm, Single (ICD-10-PCS; 2024-03-20)
DX: A41.51 Sepsis due to Escherichia coli [E. coli] (principal); G92.8 Other toxic encephalopathy; I21.4 Non-ST elevation (NSTEMI) myocardial infarction; I50.21 Acute systolic (congestive) heart failure; E87.1 Hypo-osmolality and hyponatremia; I42.9 Cardiomyopathy, unspecified; I11.0 Hypertensive heart disease with heart failure; N30.90 Cystitis, unspecified without hematuria; E78.00 Pure hypercholesterolemia, unspecified; E11.40 Type 2 diabetes mellitus with diabetic neuropathy, unspecified; I25.10 Atherosclerotic heart disease of native coronary artery without angina pectoris; I48.0 Paroxysmal atrial fibrillation; G43.909 Migraine, unspecified, not intractable, without status migrainosus; F43.10 Post-traumatic stress disorder, unspecified; R00.1 Bradycardia, unspecified; E87.6 Hypokalemia; K21.9 Gastro-esophageal reflux disease without esophagitis; R09.02 Hypoxemia; K40.90 Unilateral inguinal hernia, without obstruction or gangrene, not specified as recurrent; K76.0 Fatty (change of) liver, not elsewhere classified; I25.2 Old myocardial infarction; Z79.4 Long term (current) use of insulin; Z79.82 Long term (current) use of aspirin; Z79.899 Other long term (current) drug therapy; Z82.49 Family history of ischemic heart disease and other diseases of the circulatory system; Z95.5 Presence of coronary angioplasty implant and graft
CPT/HCPCS: 71275; 74022; 74176; 80048; 80053; 80061; 81003; 81015; 82140; 82607; 82746; 82962; 83036; 83605; 83735; 83880; 84443; 84484; 85025; 85027; 85347; 85730; 87040; 87045; 87046; 87077; 87086; 87149; 87186; 87205; 87324; 87427; 87449; 89055; 92960; 93005; 93306; 93312; 93320; 93325; 93458; 96361; 96374; 97116; 97162; 97166; 99285; C1725; C1769; C1874; C1887; C1894; C9600; Q9967